=== PATIENT | male | born 1960 | race African-American/Black ===

== ENCOUNTER 2016-10-24 13:15 | Inpatient (IN) | payer OTHER ==
[~2016-10-24] VITALS: Ht 180.3 cm; Wt 87.1 kg
[2016-10-28] MEDS ORDERED: RANI300C PO (09:59)
[2016-10-28] MEDS ORDERED: OMEP20TA PO (09:59)
[2016-10-28] MEDS ORDERED: LISI40TA PO (09:59)
[2016-10-28] MEDS ORDERED: MELO-1 PO (09:59)
[2016-10-28] MEDS ORDERED: IRONTAB3 PO (09:59)
[2016-10-28] MEDS ORDERED: ASPI81TA19 PO (09:59)
[2016-11-14] MEDS ORDERED: SODIUM CHLORID 0.9% 500 ML IV PRN (06:15)
[2016-11-14] MEDS ORDERED: CHLORHEXIDINE GLUCONATE 2 % 1 PACK (2 CLOTHS) TOPICAL PRN (06:15)
[2016-11-14] MEDS ORDERED: INSULIN HUMAN REGULAR 1,000 UNITS/10 ML VIAL SQ PRN (06:15)
[2016-11-14] MEDS ORDERED: POVIDONE IODINE 5% (ANTISEPSIS KIT) 4 APPLICATIONS EACH NARE PRN (06:15)
[2016-11-14] MEDS ORDERED: LACTATED RINGER'S 1000 ML IV PRN (06:15)
[2016-11-14] MEDS ORDERED: METOPROLOL TARTRATE 25 MG TAB PO PRN (06:15)
[2016-11-14] MEDS ORDERED: ceFAZolin 2 GM PREMIX 50 ML ONE (06:21)
[2016-11-14] MEDS ORDERED: SODIUM CHLOR 0.9% 250 ML INJ 250 ML ONE (06:22)
[2016-11-14] MEDS ORDERED: VANCOMYCIN HCL 1000 MG VIAL ONE (06:22)
[2016-11-14] MEDS ORDERED: DEXAMETHASONE SOD PHOS 20 MG/5 ML VIAL ONE (06:23)
[2016-11-14] MEDS ORDERED: ACET-822 PO (06:23)
[2016-11-14 06:26] VITALS: BP 141/93; PULSE 66; RESP 16; TEMP 98.1; O2SAT 100
[2016-11-14] MEDS ORDERED: BISACODYL 10 MG SUPP RECTAL PRN (06:45)
[2016-11-14] MEDS ORDERED: ONDANSETRON HCL 4 MG/2 ML VIAL IVP PRN (06:45)
[2016-11-14] MEDS ORDERED: Post-op Orders (for Pharmacy) MISC XX ONE (06:45)
[2016-11-14] MEDS ORDERED: ZOLPIDEM TARTRATE 5 MG TAB PO PRN (06:45)
[2016-11-14] MEDS ORDERED: HYDR-3288 PO (06:45)
[2016-11-14] MEDS ORDERED: ACETAMINOPHEN/HYDROcodone 325 MG/7.5 MG TAB PO PRN (06:45)
[2016-11-14] MEDS ORDERED: NALOXONE HCL 0.4 MG/ML AMP IV PRN (06:45)
[2016-11-14] MEDS ORDERED: diphenhydrAMINE HCL 50 MG/ML VIAL IV PRN (06:45)
[2016-11-14] MEDS ORDERED: SODIUM CHLORIDE 0.9% FLUSH 5 ML FLUSH IVF PRN (06:45)
[2016-11-14] MEDS ORDERED: ENOX40P SQ (06:46)
[2016-11-14] MEDS ORDERED: ASPI81CH37 CHEW (06:46)
[2016-11-14] MEDS ORDERED: GENTAMICIN SULFATE 80 MG/2 ML VIAL ONE (06:58)
[2016-11-14] MEDS ORDERED: ACETAMINOPHEN 1000 MG/100 ML VIAL IV ONE (07:13)
[2016-11-14] MEDS ORDERED: ROPIVACAINE PERI-ARTICULAR INJECTION. P-ARTICULR SCH ×5 (08:30)
[2016-11-14] MEDS ORDERED: TRANEXAMIC PERI-ARTICULAR 3,000 MG/NS 100 ML P-ARTICULR SCH ×2 (08:30)
[2016-11-14] MEDS ORDERED: DEXAMETHASONE SOD PHOS 20 MG/5 ML VIAL IV PUSH SCH (08:30)
[2016-11-14] MEDS ORDERED: TRANEXAMIC ACID IV SCH (08:30)
[2016-11-14] MEDS ORDERED: CHLORHEXIDINE GLUCONATE 4% SOLN 120 ML BTL TOPICAL SCH (08:30)
[2016-11-14] MEDS ORDERED: POVIDONE IODINE 7.5% SCRUB 118 ML BOTTLE TOPICAL SCH (08:30)
[2016-11-14] MEDS ORDERED: SODIUM CHLORIDE 0.9% IV SCH (08:30)
[2016-11-14] MEDS ORDERED: VANCOMYCIN 1000 MG/NS 250 ML (for <70 kg) IV SCH ×2 (08:30)
[2016-11-14] MEDS ORDERED: ceFAZolin 2 GM PREMIX 50 ML IV SCH (08:30)
[2016-11-14] MEDS: PANTOPRAZOLE SOD 20 MG DELAYED RELEASE TAB PO SCH (09:00)
[2016-11-14] MEDS: LISINOPRIL 20 MG TAB PO SCH (09:00)
[2016-11-14] MEDS ORDERED: ROPIVACAINE 0.5% PF INJ 30 ML VIAL NERV BLOCK ONE (10:19)
[2016-11-14] MEDS ORDERED: DO NOT ADM ANY ANTICOAGULANT DRUGS PRN (10:23)
[2016-11-14] MEDS ORDERED: MIDAZOLAM HCL 2 MG/2 ML VIAL ONE (10:41)
[2016-11-14] MEDS ORDERED: fentaNYL CITRATE 250 MCG/5 ML AMP ONE (10:41)
[2016-11-14] MEDS ORDERED: *morphine SULFATE 8 MG/ML PERIprocedure ONLY ONE ×2 (10:46→11:04)
[2016-11-14] MEDS: SODIUM CHLOR 0.9% 1000 ML INJ 1,000 ML IV SCH ×3 (11:02→19:32)
[2016-11-14] MEDS: SODIUM CHLORIDE 0.9% FLUSH 5 ML FLUSH IVF SCH ×2 (11:09→19:32)
[2016-11-14] MEDS: ACETAMINOPHEN/HYDROcodone 325 MG/7.5 MG TAB PO PRN (11:54)
[2016-11-14 12:00] VITALS: BP 152/104; PULSE 84; RESP 17; TEMP 95.4; O2SAT 99
[2016-11-14] MEDS ORDERED: ONDANSETRON HCL 4 MG/2 ML VIAL IV PUSH ONE (12:00)
[2016-11-14] MEDS ORDERED: ePHEDrine/NS 25 MG/5 ML SYR IV ONE (12:00)
[2016-11-14] MEDS ORDERED: NEOSTIGMINE 3 MG/3 ML SYR IV ONE (12:00)
[2016-11-14] MEDS ORDERED: LACTATED RINGER'S 1000 ML INJ 1,000 ML IV ONE (12:00)
[2016-11-14] MEDS ORDERED: PHENYLEPH/NS 1000 MCG/10 ML SYR IV ONE (12:00)
[2016-11-14] MEDS ORDERED: PROPOFOL 200 MG/20 ML AMP IV ONE (12:00)
--- NOTE | 2016-11-14 12:01 | RADRPT ---
EXAM DATE/TIME: 11/14/2016 11:05 [facility] COMPARISON: No previous studies available for comparison. INDICATIONS : Post op left total knee. MEDICAL HISTORY : None. SURGICAL HISTORY : Total knee replacement, left. ENCOUNTER: Initial ACUITY: 1 day PAIN SCORE: 10/10 LOCATION: Left hip FINDINGS: Total knee arthroplasty is in place. The femoral, tibial, and patellar components appear intact. Th ere are no signs of loosening or fracture. CONCLUSION: Intact total knee arthroplasty for lindaOlivier KayaOlivier Lanier MD on November 14, 2016 at 11:56 Board Certified Radiologist. This report was verified electronically.
--- NOTE | 2016-11-14 14:04 | PD.CONS ---
HPI Service [facility] Hospitalists Consult Requested By Dr. Zachary Garay Reason for Consult Medical Management Primary Care Physician Dr. Jw Brooke Diagnoses: History of Present Illness Mr. Gregg is a pleasant 56 y/o male with HTN, GERD and osteoarthritis. He was admitted to [facility] on 11/14/16 for left total knee arthroplasty with Dr. Garay. The [facility] Hospitalist team was consulted to help with medical management post- operatively. Pt is seen on the orthopedic floor, post-op, and is doing well. His BP is elevated with systolic in the 150's but he has not taken his Lisinopril yet today. Pain is fairly well controlled. Duncan catheter is in place. No reported N/V, chest pain, SOB, palpitations. Pt is planned for home with [facility] at the time of discharge. Review of Systems Constitutional: DENIES: Fever, Chills Eyes: DENIES: Vision loss Ears, nose, mouth, throat: DENIES: Hearing loss Respiratory: DENIES: Cough, Shortness of breath Cardiovascular: DENIES: Chest pain, Palpitations, Dyspnea on Exertion, Lower Extremity Edema Gastrointestinal: DENIES: Abdominal pain, Nausea, Vomiting Genitourinary: DENIES: Dysuria Musculoskeletal: COMPLAINS OF: Joint pain, DENIES: Neck pain Integumentary: DENIES: Rash Neurologic: DENIES: Headache Psychiatric: DENIES: Confusion Past Family Social History Past Medical History HTN GERD Hyperlipidemia Osteoarthritis Chronic pain in both shoulders Past Surgical History None prior to admission Reported Medications -Tylenol Extra Strength 500 Mg PO DAILY -Lisinopril 40 Mg PO DAILY -Geritol Complete 1 Tab PO DAILY PRN -Aspir-Low 81 Mg PO DAILY -Omeprazole 20 Mg PO DAILY -Meloxicam 15 Mg PO DAILY Allergies: Coded Allergies: No Known Allergies (Unverified , 11/14/16) Family History Mother from breast cancer at age 37 Father from esophageal/stomach cancer Social History Hx of tobacco use Denies any alcohol use Hx of illicit drug use, marijuana and cocaine reported, none since 2009 Physical Exam Vital Signs Vital Signs Date Time Temp Pulse Resp B/P Pulse Ox O2 Delivery O2 Flow Rate FiO2 11/14/16 12:00 95.4 84 17 152/104 99 11/14/16 11:28 98.2 89 15 136/95 100 Nasal Cannula 2 11/14/16 11:15 73 14 154/93 100 Nasal Cannula 2 11/14/16 11:00 90 13 153/96 100 Nasal Cannula 2 11/14/16 10:45 96 15 149/91 100 Nasal Cannula 2 11/14/16 10:32 97.5 90 16 119/92 96 Simple Mask 4 11/14/16 06:26 98.1 66 16 141/93 100 Physical Exam GENERAL: This is a well-nourished, well-developed patient, in no apparent distress. HEENT: Atraumatic. Normocephalic. No temporal or scalp tenderness. No scleral icterus. Airway patent. NECK: Trachea midline, supple, nontender CARDIO: Regular RESP: CTA ABD: +BS, soft, non-tender, nondistended. EXT: LLE bandages are c/d/i NEURO: Awake and alert. Motor and sensory grossly within normal limits. Normal speech. Laboratory Laboratory Tests Test 11/14/16 06:10 Blood Type O POSITIVE Antibody Screen NEGATIVE Blood Bank Comment Imaging Last Impressions Knee X-Ray 11/14/16 0642 Signed Impressions: Service Date/Time: Monday, November 14, 2016 11:05 - CONCLUSION: Intact total knee arthroplasty for technique. Alis Lanier MD Assessment and Plan Problem List: (1) Primary localized osteoarthrosis, lower leg Status: Chronic Plan: - Pt s/p left total knee arthroplasty on 11/14/[address] Garay - [id number] control per Ortho - PT daily - IS - Constipation precautions - Duncan cath to be removed tomorrow - Pt is planning for discharge with HHC/PT at the end of this hospitalization - DVT prophylaxis (2) Hypertension Status: Chronic Plan: - Home meds resumed (3) GERD (gastroesophageal reflux disease) Status: Chronic Plan: - PPI (4) Hyperlipidemia Status: Chronic Assessment and Plan Patient examined. Assessment and plan formulated with Brisa Ibarra PA-C. I agree with the above. Problem Qualifiers (1) Primary localized osteoarthrosis, lower leg: Qualified Code: M17.12 - Primary localized osteoarthrosis, lower leg, left Brisa Ibarra Nov 14, 2016 14:04 Diomedes Viecnte MD Nov 14, 2016 16:37
[2016-11-14 15:43] VITALS: BP 133/72; PULSE 89; RESP 17; TEMP 95.6; O2SAT 97
[2016-11-14 16:32] VITALS: O2SAT 97
[2016-11-14 19:33] VITALS: BP 107/67; PULSE 74; RESP 18; TEMP 96.7; O2SAT 99
[2016-11-14 23:18] VITALS: BP 97/68; PULSE 75; RESP 18; TEMP 97.3; O2SAT 98
[2016-11-15] VITALS (7 sets, daily range): BP systolic 101–157; BP diastolic 61–98; PULSE 66–91; RESP 15–18; TEMP 96.7–98.6; O2SAT 97–99
[2016-11-15] MEDS: ACETAMINOPHEN/HYDROcodone 325 MG/7.5 MG TAB PO PRN ×5 (01:53→22:07)
[2016-11-15] MEDS: MAGNESIUM HYDROXIDE SUSP 30 ML CUP PO PRN ×2 (05:59→19:31)
[2016-11-15] MEDS: PANTOPRAZOLE SOD 20 MG DELAYED RELEASE TAB PO SCH (07:35)
[2016-11-15] MEDS: LISINOPRIL 20 MG TAB PO SCH (07:35)
[2016-11-15] MEDS: SODIUM CHLORIDE 0.9% FLUSH 5 ML FLUSH IVF SCH ×2 (07:36→19:32)
[2016-11-15 07:53] LABS: HEMATOCRIT 34.4 % (39.0-51.0); MEAN CELL VOLUME 91.3 FL (80.0-100.0); MEAN CORPUSCULAR HEMOGLOBIN 30.9 PG (27.0-34.0); MEAN CORPUSCULAR HGB CONC 33.9 % (32.0-36.0); PLATELET COUNT 268 TH/MM3 (150-450); RED BLOOD COUNT 3.77 MIL/MM3 (4.50-5.90); RED CELL DISTRIBUTION WIDTH 14.1 % (11.6-17.2); REVIEW FLAG FINAL
[2016-11-15 08:05] LABS: BICARBONATE 23.5 MEQ/L (21.0-32.0); POTASSIUM 3.6 MEQ/L (3.5-5.1)
--- NOTE | 2016-11-15 08:22 | PD.ORT.PN ---
Subjective Post Op Day #: 1 Subjective Remarks pain under control. Objective Vitals Vital Signs Date Time Temp Pulse Resp B/P Pulse Ox O2 Delivery O2 Flow Rate FiO2 11/15/16 07:51 97.6 72 15 124/74 99 11/15/16 04:29 97.8 70 18 101/62 97 11/14/16 23:18 97.3 75 18 97/68 98 11/14/16 19:33 96.7 74 18 107/67 99 11/14/16 16:32 97 21 11/14/16 15:43 95.6 89 17 133/72 97 11/14/16 12:00 95.4 84 17 152/104 99 11/14/16 11:28 98.2 89 15 136/95 100 Nasal Cannula 2 11/14/16 11:15 73 14 154/93 100 Nasal Cannula 2 11/14/16 11:00 90 13 153/96 100 Nasal Cannula 2 11/14/16 10:45 96 15 149/91 100 Nasal Cannula 2 11/14/16 10:32 97.5 90 16 119/92 96 Simple Mask 4 I/O 11/14/16 11/14/16 11/14/16 11/15/16 11/15/16 11/15/16 07:00 15:00 23:00 07:00 15:00 23:00 Intake Total 1100 ml 681 ml 1376 ml Output Total 50 ml 800 ml 975 ml Balance 1050 ml -119 ml 401 ml Intake Oral 480 ml 360 ml IV Total 201 ml 1016 ml Other 1100 ml Output Urine Total 800 ml 975 ml Estimated Blood Loss 50 ml # Bowel Movements 0 0 Result Diagram: 11/15/16 0711 11/15/16 0711 Objective Remarks in bed, nad incision no erythema, no drainage neg homans nvi Assessment & Plan Ortho Post Op Day #: 1 Problem List: Assessment and Plan s/p L TKA wbat daily dressing changes lovenox rx in chart d/c planning home with hh and pt - cleared today if does well in PT f/up dr. gallardo 2 weeks Zachary Wilson Nov 15, 2016 08:22
--- NOTE | 2016-11-15 08:24 | HHI.DCPOC ---
Discharge Care Plan Diagnosis: (1) Primary localized osteoarthrosis, lower leg Your Health Problems Are: Difficulty with ADL Goals to Promote Your Health * To prevent worsening of your condition and complications * To maintain your health at the optimal level Directions to Meet Your Goals Take your medications as prescribed Follow your dietary instruction Follow activity as directed Keep your appointments as scheduled Take your immunizations and boosters as scheduled If your symptoms worsen call your PCP, if no PCP go to Urgent Care Center or Emergency Room Smoking is Dangerous to Your Health. Avoid second hand smoke Call the 24-hour hour crisis hotline for domestic abuse at Zachary Wilson Nov 15, 2016 08:24
--- NOTE | 2016-11-15 08:25 | HHI.FF ---
Face to Face Verification Diagnosis: (1) Primary localized osteoarthrosis, lower leg Physical Therapy Gait training, Safety evaluation, Transfer training, bed to chair Knee: Total knee, Protocol: Left, Full weight bearing Left LE Weight Bearing: WB as tolerated Nursing RN: 3 days/week x 2 weeks Nursing: Marie teaching, Dressing changes Dressing Changes: Daily dressing change I have seen patient Jerod Gregg on 11/15/16. My clinical findings support the need for the requested home health care services because: Limited ability to care for self High risk of falls I certify that my clinical findings support that this patient is homebound because: Post-op weakness Unsteady gait/balance Zachary Wilson Nov 15, 2016 08:25
[2016-11-15] MEDS ORDERED: COMMODE 3-IN-11 MIS (08:26)
[2016-11-15] MEDS ORDERED: CPMMACHINE (08:26)
[2016-11-15] MEDS ORDERED: WALKER WHEELS/F1 MIS (08:26)
[2016-11-15] MEDS: ENOXAPARIN SODIUM 40 MG/0.4 ML SYRINGE SQ SCH (09:47)
[2016-11-15] MEDS ORDERED: INFLUENZA VIRUS VACCINE (QUADRIVALENT) 0.5 ML SYR IM ONE (10:00)
[2016-11-15] MEDS ORDERED: PNEUMOCOCCAL POLYVALENT INJ 25 MCG/0.5 ML SYR IM ONE (10:00)
[2016-11-15] MEDS: MORPHINE SULFATE 4 MG/ML INJ IV PUSH PRN ×3 (10:57→23:03)
[2016-11-15] MEDS: SODIUM CHLOR 0.9% 1000 ML INJ 1,000 ML IV SCH ×2 (12:42→19:32)
--- NOTE | 2016-11-15 18:01 | RADRPT ---
EXAM DATE/TIME: 11/15/2016 17:44 [facility] COMPARISON: CHEST SINGLE AP, November 21, 2011, 13:25. INDICATIONS : Cough, congestion. MEDICAL HISTORY : Osteoarthritis. SURGICAL HISTORY : None. ENCOUNTER: Initial ACUITY: 2 days PAIN SCORE: 0/10 LOCATION: Bilateral chest FINDINGS: A single view of the chest demonstrates the lungs to be symmetrically aerated without evidence of mas s, infiltrate or effusion. The cardiomediastinal contours are unremarkable. Osseous structures are intact. CONCLUSION: No acute disease. John Brady MD on November 15, 2016 at 17:59 Board Certified Radiologist. This report was verified electronically.
[2016-11-15] MEDS: guaiFENesin E.R. 600 MG TAB PO SCH ×2 (18:09→19:31)
[2016-11-15] MEDS: DOCUSATE SODIUM 100 MG CAP PO SCH (19:31)
[2016-11-15] MEDS: MULTIVITAMINS/MINERALS THERAPEUTIC TAB PO SCH (19:31)
[2016-11-16] MEDS: ACETAMINOPHEN/HYDROcodone 325 MG/7.5 MG TAB PO PRN ×4 (02:05→16:06)
[2016-11-16 04:09] VITALS: BP 138/89; PULSE 109; RESP 18; TEMP 98.1; O2SAT 97
[2016-11-16] MEDS: MORPHINE SULFATE 4 MG/ML INJ IV PUSH PRN (05:05)
--- NOTE | 2016-11-16 07:43 | PD.ORT.PN ---
Subjective Post Op Day #: 2 Subjective Remarks pain under control. feels better this morning. difficulty working with PT yesterday. Objective Vitals Vital Signs Date Time Temp Pulse Resp B/P Pulse Ox O2 Delivery O2 Flow Rate FiO2 11/16/16 07:29 Room Air 11/16/16 04:09 98.1 109 18 138/89 97 11/15/16 23:10 97.5 91 18 150/91 97 11/15/16 19:53 96.7 70 18 157/98 97 11/15/16 16:00 97.0 77 17 138/95 98 11/15/16 12:00 98.6 66 18 124/61 97 11/15/16 09:34 97 21 11/15/16 07:51 97.6 72 15 124/74 99 I/O 11/15/16 11/15/16 11/15/16 11/16/16 11/16/16 11/16/16 07:00 15:00 23:00 07:00 15:00 23:00 Intake Total 1376 ml 1171 ml 480 ml 360 ml Output Total 975 ml 2250 ml 400 ml Balance 401 ml -1079 ml 480 ml -40 ml Intake Oral 360 ml 600 ml 480 ml 360 ml IV Total 1016 ml 571 ml Output Urine Total 975 ml 2250 ml 400 ml # Voids 2 # Bowel Movements 0 0 0 0 Result Diagram: 11/15/16 0711 11/15/16 0711 Objective Remarks in bed, nad dressing c/d/i neg homans nvi Assessment & Plan Ortho Post Op Day #: 2 Problem List: Assessment and Plan s/p L TKA wbat daily dressing changes lovenox rx in chart OOB and IS d/c planning home with [facility] and pt - cleared today if does well in PT f/up dr. gallardo 2 weeks Zachary Wilson Nov 16, 2016 07:43
[2016-11-16 07:50] LABS: HEMATOCRIT 33.9 % (39.0-51.0); MEAN CELL VOLUME 90.6 FL (80.0-100.0); MEAN CORPUSCULAR HEMOGLOBIN 31.1 PG (27.0-34.0); MEAN CORPUSCULAR HGB CONC 34.3 % (32.0-36.0); PLATELET COUNT 283 TH/MM3 (150-450); RED BLOOD COUNT 3.74 MIL/MM3 (4.50-5.90); REVIEW FLAG FINAL; WHITE BLOOD COUNT 9.8 TH/MM3 (4.0-11.0)
[2016-11-16 08:00] VITALS: BP 134/87; PULSE 89; RESP 17; TEMP 96.4; O2SAT 94
[2016-11-16 08:14] LABS: BICARBONATE 28.1 MEQ/L (21.0-32.0)
[2016-11-16] MEDS: SODIUM CHLOR 0.9% 1000 ML INJ 1,000 ML IV SCH (08:42)
[2016-11-16] MEDS: LISINOPRIL 20 MG TAB PO SCH (08:59)
[2016-11-16] MEDS: PANTOPRAZOLE SOD 20 MG DELAYED RELEASE TAB PO SCH (08:59)
[2016-11-16] MEDS: ENOXAPARIN SODIUM 40 MG/0.4 ML SYRINGE SQ SCH (08:59)
[2016-11-16] MEDS: MULTIVITAMINS/MINERALS THERAPEUTIC TAB PO SCH (08:59)
[2016-11-16] MEDS: guaiFENesin E.R. 600 MG TAB PO SCH (08:59)
[2016-11-16] MEDS: DOCUSATE SODIUM 100 MG CAP PO SCH (08:59)
[2016-11-16] MEDS: SODIUM CHLORIDE 0.9% FLUSH 5 ML FLUSH IVF SCH (09:00)
[2016-11-16 12:00] VITALS: BP 162/98; PULSE 85; RESP 17; TEMP 96.5; O2SAT 97
[2016-11-16 16:00] VITALS: BP 152/95; PULSE 79; RESP 17; TEMP 96.9; O2SAT 99
--- NOTE | 2016-11-17 15:28 | MD ---
cc: KEVIN HILLMAN M.D. ADMISSION DATE: 11/14/2016 DISCHARGE DATE: 11/16/2016 ADMISSION DIAGNOSIS Severe degenerative osteoarthritis left knee. DISCHARGE DIAGNOSIS Severe degenerative osteoarthritis left knee. HISTORY OF PRESENT ILLNESS Mr. Gregg is a 56-year-old male who presented to the [facility] for evaluation by Dr. Kevin Hillman regarding his progressive knee pain on the left side. The patient states he had an injury to his left knee many years ago for which he never received treatment at that point in time. He notes over the past several years his knee pain has become progressive and severe inhibiting his ability to ambulate. The patient states he has no alleviating factors of his pain although in the past he has tried medications, bracing, other assistive devices, physical therapy, home exercises and injections without relief of his symptoms. He does have x-ray evidence of severe degenerative osteoarthritis of the left knee. While in the office the patient was counseled on his diagnosis and treatment options. The risks, benefits and indications were all discussed in great detail. The patient did elect to proceed with surgical intervention to include a left total knee arthroplasty. DATE OF SURGERY 11/14/2016. PROCEDURE Left total knee arthroplasty. POSTOP After surgery the patient was admitted to [facility] where he received appropriate medical management, pain control, DVT prophylaxis as well as physical therapy. DISCHARGE Once being discharged from the hospital the patient has been discharged to a fpc facility. He is in stable condition. He may weight-bear as tolerated. He is to receive daily dressing changes and has been instructed on appropriate wound care management. DISCHARGE MEDICATIONS The patient has been provided prescriptions for pain control as well as DVT prophylaxis medication. FOLLOWUP He has also been provided a follow-up appointment approximately 2 weeks from his date of surgery. The patient has asked appropriate questions which have been answered. The patient has been discharged. Dictated by: Mario Wilson PA-C Kevin Hillman MD JWM/SSB /8:04 AM /3:25 PM
--- NOTE | 2016-11-18 11:33 | MP ---
cc: KEVIN HILLMAN M.D. DATE OF SURGERY: 11/14/2016 PREOPERATIVE DIAGNOSIS Left knee osteoarthritis. POSTOPERATIVE DIAGNOSES Left knee osteoarthritis. PROCEDURE Left total knee arthroplasty. SURGEON Dr. Kevin Hillman ACCOUNT SERVICES SPECIALIST Kevin Wilson PA-C ANESTHESIA General with a femoral nerve block. ESTIMATED BLOOD LOSS 50 cc. COMPLICATIONS None. IMPLANTS USED [employer]. JUSTIFICATION This patient is a 56-year-old male who has severe degenerative osteoarthritis involving the left knee. He is severe disabling pain with standing, walking ambulation weightbearing activities and even severe pain at rest. The pain interferes with his activities of daily living. He has failed greater than three months of nonoperative conservative treatment to include medication, therapy, injections, ambulatory assisted aids, home exercise program, activity modification and weight loss. X-rays of the left knee revealed severe end-stage osteoarthritis, [id number] joint space narrowing, subchondral sclerosis, subchondral cysts, osteophyte formation and associated deformity. The patient was counseled as to the risks, benefits and alternatives to a total knee arthroplasty. The risks were discussed which include but are not limited to anesthesia, bleeding, infection, damage to nerves and blood vessels, pain, stiffness, failure of components, blood clots, pulmonary embolism and even . The patient's pain is severe. He favored the benefits over the risks and did wish to proceed with surgery. PROCEDURE IN DETAIL A written consent was obtained. The patient was identified by name, taken to the operating room and placed supine on the operating table. General anesthesia was administered as well as two grams of IV Ancef and one gram of IV vancomycin. A well-padded tourniquet was placed on the left thigh. The left lower extremity was prepped and draped using isopropyl alcohol, Hibiclens solution and ChloraPrep solution. After a timeout was performed an Esmarch bandage was used to exsanguinate the left lower extremity and the tourniquet was inflated to 250 mmHg. A longitudinal incision was made over the anterior aspect of the left knee. A medial parapatellar arthrotomy was performed. The patella was everted. A patellar resection guide was used to resect 9 mm of patella. Three drill holes were placed and the patellar trial fit well. Attention was turned to the femur where an intramedullary guide was placed. The distal femoral guide was set to remove 10 mm of distal femur 5 degrees off the anatomic valgus axis alignment. An oscillating saw was used to perform the distal femoral cut. Attention was turned to the tibia where an extramedullary tibial guide was set to remove 5 mm off the lowest portion of the medial tibial plateau. The tibial guide was pinned in place and the tibia cut was performed. A 5 mm spacer block showed full extension. Attention was turned back to the femur where the AP sizing block was placed and set to 3 degrees of external rotation. The AP block was pinned in place to allow resection of the anterior, posterior and chamfer cuts. A PCL box guide was then placed and the PCL was box cut with an oscillating saw. The medial and lateral meniscus remnants were removed as well as bone and soft tissue debris from the posterior portion of the knee. The tibia baseplate was then pinned in place. The tibia was drilled and punched. Trial components were evaluated and final components cemented in place. With the final components in place the leg could achieve full extension to 0 degrees and flexion to 140. There was no evidence of tibial lift-off. Varus-valgus balance appeared appropriate and symmetric. The patella was noted to track centrally. The tourniquet was deflated. Bovie cautery was used for hemostasis. The arthrotomy incision was closed with #1 Vicryl suture, the subcuticular layer with 2-0 Vicryl suture and skin closed with Dermabond. Sterile dressings were applied. The patient tolerated the procedure well. No intraoperative complications were noted. Kevin Wilson, physician visitor services assistant certified, was present during the entire procedure to include patient positioning and the procedure itself. The medical necessity of the physician visitor services assistant was indicated in this case due to the complexity of the procedure. He assisted with appropriate manipulation of the leg and also retraction of muscle, tendon, bone and neurovascular structures. He assisted in preparation of bone and also implantation of the prosthetic replacement. MD CRISTIAN Dhaliwal/JIE /10:49 AM /11:14 AM
== END 2016-11-16 17:48 | DRG 470 ==
LOC: HSDI 11-14 05:31 → N06B 11-14 11:39
PROVIDERS: ADMIT Orthopaedic Surgery Sports Medicine; ATTEND Orthopaedic Surgery Sports Medicine
PROC: 3E0T3CZ (ICD-10-PCS; 2016-11-14)
PROC: 0SRD0J9 Replacement of Left Knee Joint with Synthetic Substitute, Cemented, Open Approach (ICD-10-PCS; principal; 2016-11-14 08:00)
DX: M17.12 Unilateral primary osteoarthritis, left knee (principal); I10 Essential (primary) hypertension; K21.9 Gastro-esophageal reflux disease without esophagitis; E78.5 Hyperlipidemia, unspecified; G89.29 Other chronic pain; M25.512 Pain in left shoulder; M25.511 Pain in right shoulder; Z23 Encounter for immunization; Z87.891 Personal history of nicotine dependence
CPT/HCPCS: 71010; 73560; 80048; 85027; 86850; 86900; 86901; 90732; 94150; C1776; J0131; J0171; J0690; J0735; J1100; J1580; J1650; J1885; J2250; J2270; J2370; J2405; J2710; J2795; J3010; J3370; J7030; J7050; J7120; L1830

== ENCOUNTER → 2016-10-28 | Outpatient (CLI) | payer OTHER ==
[~2016-10-28] MED LIST: ASPI81TA19 PO; ASPI81TA21 PO; CYCL-36 PO; EXTR500C PO; GEMF600T PO; IBUP600T26 PO; IBUP800T23 PO; IRONTAB3; IRONTAB3 PO; LACT20SO4 PO; LISI40TA PO; MELO-1 PO; MUSCCRE9; OMEP20TA PO; OMPR20CCR PO; RANI300C PO; VIAG100T PO; ZYRT10TA12 PO; diclofenac topical TOP
--- NOTE | 2016-10-28 12:40 | RADRPT ---
EXAM DATE/TIME: 10/28/2016 10:02 [facility] COMPARISON: CHEST PA & LAT, December 01, 2011, 13:49. INDICATIONS : Evaluate for communicable disease, pneumonia. MEDICAL HISTORY : Osteoarthritis. SURGICAL HISTORY : None. ENCOUNTER: Initial ACUITY: 1 day PAIN SCORE: 0/10 LOCATION: Bilateral chest FINDINGS: Approximate 1.9 cm parenchymal density is present in the left upper lobe and at this site on the stud y from 2011 there was an approximate 5 cm masslike density therefore smaller. This may be scar. Heart and mediastinum are unremarkable for technique. CONCLUSION: Probable scar at the site of previously seen masslike consolidation left upper lobe, however repeat n oncontrast chest CT is suggested to compare to the study from 2014 and assess for stability. Alis Lanier MD on October 28, 2016 at 12:38 Board Certified Radiologist. This report was verified electronically.
--- NOTE | 2016-10-29 10:42 | EKG ---
Date Performed: 10/28/2016 Time Performed: 09:22:16 PTAGE: 56 years EKG: Sinus rhythm BORDERLINE LEFT AXIS DEVIATION MODERATE INTRAVENTRICULAR CONDUCTION DELAY MINIMAL VOLTAGE CRITERIA F OR LVH, CONSIDER NORMAL VARIANT BORDERLINE ECG NO PREVIOUS TRACING DOCTOR: Esequiel Miller Interpretating Date/Time 10/29/2016 10:40:53
== END ==
LOC: CPRE 08:56
PROVIDERS: ATTEND Orthopaedic Surgery Sports Medicine
DX: Z01.810 Encounter for preprocedural cardiovascular examination (principal); Z01.811 Encounter for preprocedural respiratory examination; Z01.818 Encounter for other preprocedural examination; M17.12 Unilateral primary osteoarthritis, left knee
CPT/HCPCS: 71020; 93005

== ENCOUNTER 2016-12-07 10:53 | Emergency (ER) | payer OTHER ==
[~2016-12-07] VITALS: Ht 180.3 cm; Wt 77.5 kg
[~2016-12-07 10:53] MED LIST changes: +ASPI81CH37 CHEW; -ASPI81TA19 PO; -ASPI81TA21 PO; +COMMODE 3-IN-11 MIS; +CPMMACHINE; -CYCL-36 PO; +ENOX40P SQ; -EXTR500C PO; -GEMF600T PO; +HYDR-3288 PO; -IBUP600T26 PO; -IBUP800T23 PO; -IRONTAB3; -LACT20SO4 PO; -MELO-1 PO; -MUSCCRE9; -OMPR20CCR PO; -RANI300C PO; -VIAG100T PO; +WALKER WHEELS/F1 MIS; -ZYRT10TA12 PO; -diclofenac topical TOP
[2016-12-07] MEDS ORDERED: IOHEXOL 350 MG/ML 10 ML VIAL (for RAD DIAG) IV PUSH ONE (10:54)
[2016-12-07 10:55] VITALS: BP 104/68; PULSE 118; RESP 20; TEMP 97.7; O2SAT 100
[2016-12-07] MEDS ORDERED: SODIUM CHLORIDE 0.9% FLUSH 10 ML FLUSH IVF PRN (12:30)
--- NOTE | 2016-12-07 12:34 | PD ---
HPI Chief Complaint: Pain: Acute or Chronic Time Seen by Provider: 12:16 Travel History International Travel<30 days: No Contact w/Intl Traveler<30days: No Traveled to known affect area: No History of Present Illness HPI 56-year-old male presents to the emergency department for evaluation of worsening left leg pain that has been ongoing since he came home from rehabilitation on Monday. He states he had left knee replacement surgery done by Dr. Garay on November 15, 2016. She went to rehabilitation and came home on Monday. He states that since then, he has not taken his pain medication due to constipation. However, he states the leg pain is actually in the ankle and calf as well. He also reports shortness of breath that started this morning. Patient reports history of hypertension. Denies any history of blood clots. No chest pain. No fevers or chills. No abdominal pain. No nausea, vomiting, diarrhea. PFSH Past Medical History Blood Disorders: No Cancer: No Cardiovascular Problems: Yes Chemotherapy: No Diabetes: No Diminished Hearing: No Endocrine: No Gastrointestinal Disorders: Yes (gerd) Genitourinary: No Hepatitis: No Hiatal Hernia: No Hypertension: Yes Immune Disorder: No Musculoskeletal: Yes (arthritis) Neurologic: No Psychiatric: No Reproductive: No Respiratory: No Radiation Therapy: No Thyroid Disease: No Past Surgical History AICD: No Arteriovenous Shunt: No Joint Replacement: No Pacemaker: No Other Surgery: No Social History Alcohol Use: Yes Tobacco Use: Yes (6-7 CIG PER DAY) Substance Use: No Allergies-Medications (Allergen,Severity, Reaction): Coded Allergies: No Known Allergies (Unverified , 12/07/16) Reported Meds & Prescriptions Reported Meds & Active Scripts Active Commode 3-in-1 (Device) 1 Mis Mis 1 Ea .ROUTE DIRECTED Walker with Front Wheels (Device) 1 Mis Mis 1 Ea .ROUTE DIRECTED CPM-Continuous Passive Motion Machine 1 Ea Device 1 Ea .ROUTE DIRECTED Aspirin Low Dose (Aspirin) 81 Mg Chew 81 Mg CHEW BID Lovenox Inj (Enoxaparin Sodium) 40 Mg/0.4 Ml Syr 40 Mg SQ DAILY [place] (Hydrocodone-Acetaminophen) 7.5-325 mg Tab 1-2 Tab PO Q6H PRN Reported Lisinopril 40 Mg Tab 40 Mg PO DAILY Geritol Complete (Iron-Vitamins) 1 Tab Tab 1 Tab PO DAILY PRN Omeprazole 20 Mg Tab 20 Mg PO DAILY Review of Systems Except as stated in HPI: all other systems reviewed are Neg Physical Exam Narrative GENERAL: Well-nourished, well-developed male patient, afebrile. SKIN: Focused skin assessment warm/dry. Patient has Steri-Strips noted to left anterior knee without erythema or drainage. HEAD: Normocephalic. Atraumatic. EYES: No scleral icterus. No injection or drainage. NECK: Supple, trachea midline. No JVD or lymphadenopathy. CARDIOVASCULAR: Regular rate and rhythm without murmurs, gallops, or rubs. Left pedal pulse 2+. RESPIRATORY: Breath sounds equal bilaterally. No accessory muscle use. Lungs sounds are clear to auscultation. GASTROINTESTINAL: Abdomen soft and nondistended. No tenderness to palpation. MUSCULOSKELETAL: No cyanosis, or edema. BACK: Nontender without obvious deformity. No CVA tenderness. Data Data Last Documented VS Vital Signs Date Time Temp Pulse Resp B/P (MAP) Pulse Ox O2 Delivery O2 Flow Rate FiO2 12/07/16 16:23 96 Room Air 12/07/16 10:55 97.7 118 20 Orders Orders Complete Blood Count With Diff (12/07/16 12:23) Basic Metabolic Panel (Bmp) (12/07/16 12:23) D-Dimer (12/07/16 12:23) Act Partial Throm Time (Ptt) (12/07/16 12:23) Prothrombin Time / Inr (Pt) (12/07/16 12:23) Magnesium (Mg) (12/07/16 12:23) Ckmb (Isoenzyme) Profile (12/07/16 12:23) Troponin I (12/07/16 12:23) Iv Access Insert/Monitor (12/07/16 12:23) Electrocardiogram (12/07/16 12:23) Ecg Monitoring (12/07/16 12:23) Oximetry (12/07/16 12:23) Oxygen Administration (12/07/16 12:23) Chest, Single Ap (12/07/16 12:23) Sodium Chloride 0.9% Flush (Ns Flush) (12/07/16 12:30) Us Leg Venous Doppler (12/07/16 ) Acetamin-Hydrocod 325-5 Mg ([place] 5-325 (12/07/16 12:45) Ct Pulmonary Angiogram (12/07/16 ) Vascular Access Team Consult/P PRN (12/07/16 16:42) Vascular Poc Ultrasound (12/07/16 ) Iohexol 350 Inj (Omnipaque 350 Inj) (12/07/16 10:54) Labs Laboratory Tests Test 12/07/16 13:00 White Blood Count 7.9 TH/MM3 Red Blood Count 4.37 MIL/MM3 Hemoglobin 12.9 GM/DL Hematocrit 39.2 % Mean Corpuscular Volume 89.9 FL Mean Corpuscular Hemoglobin 29.6 PG Mean Corpuscular Hemoglobin Concent 32.9 % Red Cell Distribution Width 13.7 % Platelet Count 423 TH/MM3 Mean Platelet Volume 7.9 FL Neutrophils (%) (Auto) 65.8 % Lymphocytes (%) (Auto) 24.3 % Monocytes (%) (Auto) 7.2 % Eosinophils (%) (Auto) 2.2 % Basophils (%) (Auto) 0.5 % Neutrophils # (Auto) 5.2 TH/MM3 Lymphocytes # (Auto) 1.9 TH/MM3 Monocytes # (Auto) 0.6 TH/MM3 Eosinophils # (Auto) 0.2 TH/MM3 Basophils # (Auto) 0.0 TH/MM3 CBC Comment DIFF FINAL Differential Comment Prothrombin Time 11.0 SEC Prothromb Time International Ratio 1.0 RATIO Activated Partial Thromboplast Time 31.5 SEC D-Dimer Quantitative (PE/DVT) 4.33 MG/L FEU Blood Urea Nitrogen 20 MG/DL Creatinine 1.24 MG/DL Random Glucose 92 MG/DL Calcium Level 10.6 MG/DL Magnesium Level 2.4 MG/DL Sodium Level 133 MEQ/L Potassium Level 5.0 MEQ/L Chloride Level 100 MEQ/L Carbon Dioxide Level 24.9 MEQ/L Anion Gap 8 MEQ/L Estimat Glomerular Filtration Rate 73 ML/MIN Total Creatine Kinase 67 U/L Troponin I LESS THAN 0.02 NG/ML MDM Medical Decision Making Medical Screen Exam Complete: Yes Emergency Medical Condition: Yes Medical Record Reviewed: Yes Interpretation(s) Venous Doppler ultrasound left lower extremity - CONCLUSION: 1. No sonographic evidence for left lower extremity DVT. chest x-ray - CONCLUSION: No acute disease. CT PA - CONCLUSION: 1. Probable scarring versus atelectasis left upper lobe. Three-month followup CT chest recommended. 2. No evidence for pulmonary embolism. 3. Small pericardial effusion. Differential Diagnosis Postop pain versus DVT versus PE versus anxiety Narrative Course 56-year-old male presents to the emergency department for left leg pain that started on Monday. He was just discharged from rehabilitation. He also states he has not taken his pain medication since coming home. He reports shortness of breath that started this morning. EKG, CBC, BMP, magnesium, CK, troponin, PTT, PTT/INR, d-dimer are ordered and pending. Chest x-ray and ultrasound of the left leg is ordered and pending. Patient is given Lortab 5/325 mg for pain. Patient declined Lortab for pain. EKG shows sinus rhythm, heart rate 95, no acute ST changes. CBC shows no acute abnormality. BMP shows no acute abnormality. CK is 67. Troponin is less than 0.02. Magnesium is 2.4. Coags show no acute abnormality. D-dimer is 4.33. Chest x-ray shows no acute disease. US left leg shows no evidence for DVT. CT pulmonary angiogram is ordered and pending. CT pulmonary angiogram shows 1. Probable scarring versus atelectasis left upper lobe. Three-month followup CT chest recommended; 2. No evidence for pulmonary embolism; 3. Small pericardial effusion. My attending physician, Dr. Cantrell, is aware of the findings and agrees with plan and disposition. The patient is given a copy of his CT report. He is instructed to follow his primary care physician for a 3 month follow-up CT of the chest. He is to return here for any acute worsening of symptoms. He verbalizes agreement and understanding. The patient was discharged in stable condition with instructions, including return instructions and follow up instructions. Diagnosis Primary Impression: Postoperative pain of left knee Referrals: Orthopedist Primary Care Physician Patient Instructions: General Instructions, Knee Pain (ED) Additional Instructions: Follow-up with your primary care physician. Please show CT report to your primary care physician. You need a 3 month follow-up CT of the chest. Follow-up with your orthopedist. Return to the emergency department for any acute worsening of symptoms. Med/Other Pt SpecificInfo: No Change to Meds Disposition: 01 DISCHARGE HOME Condition: Stable Danny,Anca SOLORIO Dec 07, 2016 12:34
[2016-12-07] MEDS ORDERED: ACETAMINOPHEN/HYDROcodone 325 MG/5 MG TAB PO ONE (12:45)
--- NOTE | 2016-12-07 13:01 | RADRPT ---
EXAM DATE/TIME: 12/07/2016 12:37 [facility] COMPARISON: No previous studies available for comparison. INDICATIONS : Left leg pain. Post left knee replacement. Shortness of breath. MEDICAL HISTORY : Gastroesophageal reflux disease. Hypertension. SURGICAL HISTORY : Total knee replacement, left. ENCOUNTER: Initial ACUITY: 4 - 6 days PAIN SCORE: 8/10 LOCATION: Left leg. TECHNIQUE: Venous ultrasound of the leg was performed from the inguinal ligament to the proximal calf. [place] e, color Doppler and spectral tracing, compression and augmentation techniques were used. FINDINGS: There is normal compressibility of the deep venous system from the inguinal region to the proximal ca lf. No echogenic clot is seen in the lumen of the common femoral, femoral, popliteal, and posterior tibial veins. There is a normal response of the venous system to proximal and distal augmentation an d respiration. CONCLUSION: 1. No sonographic evidence for left lower extremity DVT. Neto Cotter MD on December 07, 2016 at 12:59 Board Certified Radiologist. This report was verified electronically.
--- NOTE | 2016-12-07 13:05 | RADRPT ---
EXAM DATE/TIME: 12/07/2016 12:49 [facility] COMPARISON: CHEST SINGLE AP, November 15, 2016, 17:44. INDICATIONS : Short of breath since last Monday. MEDICAL HISTORY : Hypertension. SURGICAL HISTORY : None. ENCOUNTER: Initial ACUITY: 4 - 6 days PAIN SCORE: 0/10 LOCATION: Bilateral chest FINDINGS: A single view of the chest demonstrates the lungs to be symmetrically aerated without evidence of mas s, infiltrate or effusion. The cardiomediastinal contours are unremarkable. Osseous structures are intact. CONCLUSION: No acute disease. Sergio Mclain Jr., MD on December 07, 2016 at 13:03 Board Certified Radiologist. This report was verified electronically.
[2016-12-07 13:28] LABS: AUTOMATED NEUTROPHIL # 5.2 TH/MM3 (1.8-7.7); BASOPHIL % 0.5 % (0.0-2.0); EOSINOPHIL # 0.2 TH/MM3 (0-0.4); EOSINOPHIL % 2.2 % (0.0-4.0); HEMATOCRIT 39.2 % (39.0-51.0); HEMO FLAGS DIFF FINAL; LYMPH % 24.3 % (9.0-44.0); LYMPHOCYTE # 1.9 TH/MM3 (1.0-4.8); MEAN CELL VOLUME 89.9 FL (80.0-100.0); MEAN CORPUSCULAR HEMOGLOBIN 29.6 PG (27.0-34.0); MEAN CORPUSCULAR HGB CONC 32.9 % (32.0-36.0); MONO % 7.2 % (0.0-8.0); NEUT % 65.8 % (16.0-70.0); PLATELET COUNT 423 TH/MM3 (150-450); RED BLOOD COUNT 4.37 MIL/MM3 (4.50-5.90); RED CELL DISTRIBUTION WIDTH 13.7 % (11.6-17.2); WHITE BLOOD COUNT 7.9 TH/MM3 (4.0-11.0)
[2016-12-07 13:44] LABS: APTT (PATIENT) 31.5 SEC (24.3-30.1)
[2016-12-07 13:45] LABS: ANION GAP 8 MEQ/L (5-15); BICARBONATE 24.9 MEQ/L (21.0-32.0); BLOOD UREA NITROGEN 20 MG/DL (7-18); CHLORIDE 100 MEQ/L (98-107); GLOMERULAR FILTRATION RATE 73 ML/MIN (>89); MAGNESIUM 2.4 MG/DL (1.5-2.5); SODIUM (NA) 133 MEQ/L (136-145)
[2016-12-07 13:51] LABS: CREATINE KINASE 67 U/L (39-308)
[2016-12-07 15:00] VITALS: BP 112/70; PULSE 100; RESP 18; O2SAT 95
[2016-12-07 16:23] VITALS: O2SAT 96
--- NOTE | 2016-12-07 17:38 | RADRPT ---
EXAM DATE/TIME: 12/07/2016 17:21 [facility] COMPARISON: No previous studies available for comparison. INDICATIONS : Left knee pain with shortness of breath recent TKA. IV CONTRAST: 50 cc Omnipaque 350 (iohexol) IV RADIATION DOSE: 8.47 CTDIvol (mGy) MEDICAL HISTORY : Hypertension. Gastroesophageal reflux disease. SURGICAL HISTORY : Total knee replacement, left. ENCOUNTER: Initial ACUITY: 3 days PAIN SCALE: 7/10 LOCATION: Bilateral chest TECHNIQUE: Volumetric scanning of the chest was performed using a pulmonary embolism protocol MIP images were re constructed. Using automated exposure control and adjustment of the mA and/or kV according to patien t size, radiation dose was kept as low as reasonably achievable to obtain optimal diagnostic quality images. DICOM format image data is available electronically for review and comparison. Follow-up recommendations for detected pulmonary nodules are based at a minimum on nodule size and pa tient risk factors according to Fleischner Society Guidelines. FINDINGS: There are apical emphysematous changes noted in scattered emphysematous changes are seen with hyperin flation. There is elongated area of soft tissue in the left upper lobe having the appearance of scarr ing and atelectasis. A focal mass is not appreciated. There is no consolidation or adenopathy. A smal l pericardial effusion is noted anteriorly. There is no evidence for pulmonary embolism. CONCLUSION: 1. Probable scarring versus atelectasis left upper lobe. Three-month followup CT chest recommended. 2. No evidence for pulmonary embolism. 3. Small pericardial effusion. Jr Contreras MD on December 07, 2016 at 17:34 Board Certified Radiologist. This report was verified electronically.
[2016-12-07 18:42] VITALS: BP 110/62
--- NOTE | 2016-12-08 08:33 | EKG ---
Date Performed: 12/07/2016 Time Performed: 14:18:52 PTAGE: 56 years EKG: Sinus rhythm NORMAL ECG PREVIOUS TRACING : 10/28/2016 09.22 No significant change from previous tracing noted. DOCTOR: Jerod Vail Interpretating Date/Time 12/08/2016 08:31:43
== END 2016-12-07 18:44 | disposition home or self-care (01) ==
LOC: NEPE 10:53
DX: G89.18 Other acute postprocedural pain (principal); I31.3 Pericardial effusion (noninflammatory); Z98.890 Other specified postprocedural states; R06.02 Shortness of breath; I10 Essential (primary) hypertension; K59.00 Constipation, unspecified; Z72.0 Tobacco use; Z79.899 Other long term (current) drug therapy; Z86.79 Personal history of other diseases of the circulatory system; Z87.19 Personal history of other diseases of the digestive system; Z87.39 Personal history of other diseases of the musculoskeletal system and connective tissue
CPT/HCPCS: 71010; 71275; 76937; 80048; 82550; 83735; 84484; 85025; 85379; 85610; 85730; 93005; 93971; 99285; Q9967

== ENCOUNTER 2016-12-12 14:18 | Emergency (ER) | payer OTHER ==
[2016-12-12 14:22] VITALS: BP 122/88; PULSE 91; RESP 17; TEMP 98.2; O2SAT 98
--- NOTE | 2016-12-12 14:31 | PD ---
Physical Exam Date Seen by Provider: Dec 12, 2016 Time Seen by Provider: 14:30 Narrative Pt states he twisted his right knee getting off the couch. He reports a total knee replacement on 11/13/16. Injury occurred this morning. Pt states pain is a 10/10. Awaiting bed placement. Data Data Last Documented VS Vital Signs Date Time Temp Pulse Resp B/P (MAP) Pulse Ox O2 Delivery O2 Flow Rate FiO2 12/12/16 14:22 98.2 91 17 122/88 (99) 98 MDM Supervised Visit with JOSE: Brianda Duarte Dec 12, 2016 14:31
[2016-12-12] MEDS ORDERED: KETOROLAC TROMETHAMINE 60 MG/2 ML (IM) VIAL IM ONE (14:45)
--- NOTE | 2016-12-12 15:13 | PD ---
HPI Chief Complaint: Pain: Acute or Chronic Time Seen by Provider: 14:34 Travel History International Travel<30 days: No Contact w/Intl Traveler<30days: No Traveled to known affect area: No History of Present Illness HPI This patient has chronic left knee pain. He had surgical repair by Dr. Garay for weeks ago according to this patient. He has chronic effusion there. He uses a walker and doesn't wear his knee brace cousin irritates him. He was lying on the sofa last night and sort of twisted the left knee and aggravated it. No direct trauma or injury to it. He did not fall on it. He came in for evaluation. He says he has an appointment with Dr. Garay tomorrow morning at 9 :30. Severity is moderate. PFSH Past Medical History Blood Disorders: No Cancer: No Cardiovascular Problems: Yes Chemotherapy: No Diabetes: No Diminished Hearing: No Endocrine: No Gastrointestinal Disorders: Yes (gerd) Genitourinary: No Hepatitis: No Hiatal Hernia: No Hypertension: Yes Immune Disorder: No Musculoskeletal: Yes (arthritis) Neurologic: No Psychiatric: No Reproductive: No Respiratory: No Radiation Therapy: No Thyroid Disease: No Past Surgical History AICD: No Arteriovenous Shunt: No Joint Replacement: No Pacemaker: No Other Surgery: No Social History Alcohol Use: No Tobacco Use: No Substance Use: No Allergies-Medications (Allergen,Severity, Reaction): Coded Allergies: No Known Allergies (Unverified , 12/07/16) Reported Meds & Prescriptions Reported Meds & Active Scripts Active Commode 3-in-1 (Device) 1 Mis Mis 1 Ea .ROUTE DIRECTED Walker with Front Wheels (Device) 1 Mis Mis 1 Ea .ROUTE DIRECTED CPM-Continuous Passive Motion Machine 1 Ea Device 1 Ea .ROUTE DIRECTED Aspirin Low Dose (Aspirin) 81 Mg Chew 81 Mg CHEW BID Lovenox Inj (Enoxaparin Sodium) 40 Mg/0.4 Ml Syr 40 Mg SQ DAILY [place] (Hydrocodone-Acetaminophen) 7.5-325 mg Tab 1-2 Tab PO Q6H PRN Reported Lisinopril 40 Mg Tab 40 Mg PO DAILY Geritol Complete (Iron-Vitamins) 1 Tab Tab 1 Tab PO DAILY PRN Omeprazole 20 Mg Tab 20 Mg PO DAILY Review of Systems General / Constitutional: No: Fever HENT: No: Headaches Cardiovascular: No: Chest Pain or Discomfort Respiratory: No: Cough Physical Exam Narrative GASTROINTESTINAL: Abdomen soft, non-tender, nondistended. Positive bowel sounds. No hepato-splenomegaly, or palpable masses. No guarding. SKIN: Focused skin assessment reveals no rash or ulcers. Skin is warm and dry. Palpation shows no induration or nodules. Left knee: Surgical incision is intact without dehiscence or sign of infection. The distal half is covered with Steri-Strips. Patient has an effusion. No erythema or warmth. Data Data Last Documented VS Vital Signs Date Time Temp Pulse Resp B/P (MAP) Pulse Ox O2 Delivery O2 Flow Rate FiO2 12/12/16 14:22 98.2 91 17 122/88 (99) 98 Orders Orders Ketorolac Inj (Toradol Inj) (12/12/16 14:45) MDM Medical Decision Making Medical Screen Exam Complete: Yes Emergency Medical Condition: Yes Medical Record Reviewed: Yes Differential Diagnosis Chronic effusion, post surgical pain, soft tissue injury Narrative Course I have reviewed the patient's electronic medical record. Nothing emergent to do at this time. I recommended he ice and elevate and use the walker and wear the knee brace. He is seeing his orthopedist tomorrow morning. I don't think he needs to be emergently notified at this time given he is going to see this tomorrow morning. I gave him Toradol injection Diagnosis Primary Impression: Left knee pain Qualified Codes: M25.562 - Pain in left knee; G89.29 - Other chronic pain Additional Impression: Effusion, left knee Additional Instructions: Ice and elevate and limit weightbearing on left knee. Wear knee brace. Follow- up with orthopedist Med/Other Pt SpecificInfo: Other Disposition: 01 DISCHARGE HOME Condition: Stable Geraldo Mccormack MD Dec 12, 2016 15:13
[2016-12-12 15:34] VITALS: BP 142/81
== END 2016-12-12 15:45 | disposition home or self-care (01) ==
LOC: NEPD 14:18
DX: M25.562 Pain in left knee (principal); G89.29 Other chronic pain; M25.462 Effusion, left knee
CPT/HCPCS: 96372; 99284; J1885

== ENCOUNTER 2016-12-31 05:09 | Emergency (ER) | payer OTHER ==
[~2016-12-31] VITALS: Ht 181.6 cm; Wt 80.0 kg
[2016-12-31 05:11] VITALS: BP 158/98; PULSE 88; RESP 16; TEMP 97.9; O2SAT 98
[2016-12-31] MEDS ORDERED: MELO7.5T4 PO (05:30)
[2016-12-31] MEDS ORDERED: LINA145C PO (05:30)
[2016-12-31] MEDS ORDERED: PANT40TA3 PO (05:30)
[2016-12-31] MEDS ORDERED: LACTULOSE SYRUP 20 GM/30 ML CUP PO ONE (06:15)
[2016-12-31] MEDS ORDERED: MAGNESIUM CITRATE SOLN 300 ML BTL PO ONE (06:15)
[2016-12-31 06:18] LABS: AUTOMATED NEUTROPHIL # 3.6 TH/MM3 (1.8-7.7); BASOPHIL # 0.1 TH/MM3 (0-0.2); BASOPHIL % 0.9 % (0.0-2.0); EOSINOPHIL # 0.3 TH/MM3 (0-0.4); EOSINOPHIL % 5.2 % (0.0-4.0); HEMO FLAGS DIFF FINAL; LYMPH % 27.1 % (9.0-44.0); LYMPHOCYTE # 1.7 TH/MM3 (1.0-4.8); MEAN CELL VOLUME 88.6 FL (80.0-100.0); MEAN CORPUSCULAR HEMOGLOBIN 30.2 PG (27.0-34.0); MEAN CORPUSCULAR HGB CONC 34.1 % (32.0-36.0); MONO % 9.1 % (0.0-8.0); NEUT % 57.7 % (16.0-70.0); PLATELET COUNT 304 TH/MM3 (150-450); RED BLOOD COUNT 3.95 MIL/MM3 (4.50-5.90); RED CELL DISTRIBUTION WIDTH 14.6 % (11.6-17.2); WHITE BLOOD COUNT 6.2 TH/MM3 (4.0-11.0)
[2016-12-31 06:26] LABS: BACTERIA, URINE RARE /hpf; BLOOD, URINE NEG (NEG); COMMENT (UR) CULT NOT INDICATED; CULTURE IF INDICATED CULT NOT INDICATED; GLUCOSE,URINE NEG (NEG); HYALINE CAST, URINE 1 /lpf (RARE); KETONE, URINE NEG (NEG); MUCUS URINE FEW /lpf (OCC); NITRITE,URINE NEG (NEG); URINE COLOR LIGHT-YELLOW (YELLW/STRAW)
--- NOTE | 2016-12-31 06:35 | RADRPT ---
EXAM DATE/TIME: 12/31/2016 05:53 [facility] COMPARISON: No previous studies available for comparison. INDICATIONS : Abdomen pain since knee replacement surgery November 14, 2016. MEDICAL HISTORY : Hypertension. Gastroesophageal reflux disease SURGICAL HISTORY : Total knee replacement, left. ENCOUNTER: Initial ACUITY: 2 months PAIN SCORE: 10/10 LOCATION: Right lower quadrant abdomen FINDINGS: Supine and upright views of the abdomen were performed. The abdominal bowel gas pattern is normal. No air fluid levels are seen. No abnormal masses, calcifications, or organomegaly is seen. The visu alized lower lungs are clear. No evidence of free intraperitoneal gas. The osseous structures are u nremarkable. CONCLUSION: Radiographically benign abdomen without obstruction or pneumoperitoneum. Manuel Silva MD on December 31, 2016 at 6:32 Board Certified Radiologist. This report was verified electronically.
[2016-12-31 06:37] LABS: ALT (GPT) 21 U/L (12-78); ANION GAP 9 MEQ/L (5-15); AST (GOT) 16 U/L (15-37); BICARBONATE 22.1 MEQ/L (21.0-32.0); BLOOD UREA NITROGEN 13 MG/DL (7-18); CHLORIDE 107 MEQ/L (98-107); GLOMERULAR FILTRATION RATE 78 ML/MIN (>89); POTASSIUM 3.8 MEQ/L (3.5-5.1); SODIUM (NA) 138 MEQ/L (136-145)
[2016-12-31 06:40] LABS: ALKALINE PHOSPHATASE 97 U/L (45-117); TOTAL BILIRUBIN ADULT 0.2 MG/DL (0.2-1.0)
--- NOTE | 2016-12-31 06:53 | PD ---
HPI Chief Complaint: Complaint Time Seen by Provider: 05:21 Travel History International Travel<30 days: No Contact w/Intl Traveler<30days: No Traveled to known affect area: No History of Present Illness HPI Patient is a 56-year-old male who comes in complaining of difficulty having a bowel movement as well as difficulty urinating. He had a knee replacement in October and has been taking pain medicine since then. He has been having issues with constipation since then as well. He has tried different medications to help with the constipation, but it continues. He said he had a small bowel movement today, but has not had a normal bowel movement in a long time. He said he only urinated twice today. He denies any abdominal pain. He denies nausea or vomiting. He says he has a right-sided inguinal hernia that seems to be getting larger due to having to strain to have a bowel movement. PFSH Past Medical History Blood Disorders: No Cancer: No Cardiovascular Problems: Yes Chemotherapy: No Diabetes: No Diminished Hearing: No Endocrine: No Gastrointestinal Disorders: Yes (gerd) Genitourinary: No Hepatitis: No Hiatal Hernia: No Hypertension: Yes Immune Disorder: No Inguinal Hernia: Yes Musculoskeletal: Yes (arthritis) Neurologic: No Psychiatric: No Reproductive: No Respiratory: No Radiation Therapy: No Thyroid Disease: No ?: Not Past Surgical History AICD: No Arteriovenous Shunt: No Joint Replacement: Yes Pacemaker: No Other Surgery: Yes (LEFT KNEE REPLACEMENT ) Social History Alcohol Use: No Tobacco Use: No Substance Use: No Allergies-Medications (Allergen,Severity, Reaction): Coded Allergies: No Known Allergies (Unverified , 12/31/16) Reported Meds & Prescriptions Reported Meds & Active Scripts Active Aspirin Low Dose (Aspirin) 81 Mg Chew 81 Mg CHEW BID [place] (Hydrocodone-Acetaminophen) 7.5-325 mg Tab 1-2 Tab PO Q6H PRN Reported Meloxicam 7.5 Mg Tab 7.5 Mg PO DAILY Pantoprazole (Pantoprazole Sodium) 40 Mg Tab 40 Mg PO DAILY Linzess (Linaclotide) 145 Mcg Cap 145 Mcg PO DAILY Lisinopril 40 Mg Tab 40 Mg PO DAILY Geritol Complete (Iron-Vitamins) 1 Tab Tab 1 Tab PO DAILY PRN Review of Systems Except as stated in HPI: all other systems reviewed are Neg General / Constitutional: No: Fever, Chills HENT: No: Headaches, Lightheadedness Cardiovascular: No: Chest Pain or Discomfort Respiratory: No: Shortness of Breath Gastrointestinal: Positive: Constipation, No: Nausea, Vomiting, Abdominal Pain Genitourinary: Positive: Decreased Urinary Output Musculoskeletal: Positive: Pain Skin: No Rash, No Change in Pigmentation Neurologic: No: Weakness, Dizziness Physical Exam Narrative GENERAL: Awake and alert, in no acute distress. SKIN: Focused skin assessment warm/dry. HEAD: Atraumatic. Normocephalic. EYES: Pupils equal and round. No scleral icterus. No injection or drainage. ENT: Mucous membranes pink and moist. NECK: Trachea midline. No JVD. CARDIOVASCULAR: Regular rate and rhythm. No murmur appreciated. RESPIRATORY: No accessory muscle use. Clear to auscultation. Breath sounds equal bilaterally. GASTROINTESTINAL: Abdomen soft, non-tender, nondistended. Hepatic and splenic margins not palpable. MUSCULOSKELETAL: No obvious deformities. No clubbing. No cyanosis. Edema of the left knee, surgical scar. No erythema or warmth. NEUROLOGICAL: Awake and alert. No obvious cranial nerve deficits. Motor grossly within normal limits. Normal speech. PSYCHIATRIC: Appropriate mood and affect; insight and judgment normal. Data Data Last Documented VS Vital Signs Date Time Temp Pulse Resp B/P (MAP) Pulse Ox O2 Delivery O2 Flow Rate FiO2 12/31/16 05:11 97.9 88 16 158/98 (118) 98 Room Air Orders Orders Iv Access Insert/Monitor (12/31/16 05:35) Complete Blood Count With Diff (12/31/16 05:35) Comprehensive Metabolic Panel (12/31/16 05:35) Urinalysis - C+S If Indicated (12/31/16 05:35) Abdomen, Flat & Upright (12/31/16 ) Urinary Catheter Insert/Apply (12/31/16 05:35) Magnesium Citrate Liq (Citroma Liq) (12/31/16 06:15) Lactulose Liq (Lactulose Liq) (12/31/16 06:15) Labs Laboratory Tests Test 12/31/16 06:05 12/31/16 06:10 Urine Color LIGHT-YELLOW Urine Turbidity CLEAR Urine pH 6.0 Urine Specific [place] 1.004 Urine Protein NEG mg/dL Urine Glucose (UA) NEG mg/dL Urine Ketones NEG mg/dL Urine Occult Blood NEG Urine Nitrite NEG Urine Bilirubin NEG Urine Urobilinogen LESS THAN 2.0 MG/DL Urine Leukocyte Esterase NEG Urine RBC LESS THAN 1 /hpf Urine WBC 1 /hpf Urine Bacteria RARE /hpf Urine Hyaline Casts 1 /lpf Urine Mucus FEW /lpf Microscopic Urinalysis Comment CULT NOT INDICATED White Blood Count 6.2 TH/MM3 Red Blood Count 3.95 MIL/MM3 Hemoglobin 11.9 GM/DL Hematocrit 35.0 % Mean Corpuscular Volume 88.6 FL Mean Corpuscular Hemoglobin 30.2 PG Mean Corpuscular Hemoglobin Concent 34.1 % Red Cell Distribution Width 14.6 % Platelet Count 304 TH/MM3 Mean Platelet Volume 8.1 FL Neutrophils (%) (Auto) 57.7 % Lymphocytes (%) (Auto) 27.1 % Monocytes (%) (Auto) 9.1 % Eosinophils (%) (Auto) 5.2 % Basophils (%) (Auto) 0.9 % Neutrophils # (Auto) 3.6 TH/MM3 Lymphocytes # (Auto) 1.7 TH/MM3 Monocytes # (Auto) 0.6 TH/MM3 Eosinophils # (Auto) 0.3 TH/MM3 Basophils # (Auto) 0.1 TH/MM3 CBC Comment DIFF FINAL Differential Comment Blood Urea Nitrogen 13 MG/DL Creatinine 1.16 MG/DL Random Glucose 99 MG/DL Total Protein 7.3 GM/DL Albumin 3.8 GM/DL Calcium Level 9.4 MG/DL Alkaline Phosphatase 97 U/L Aspartate Amino Transf (AST/SGOT) 16 U/L Alanine Aminotransferase (ALT/SGPT) 21 U/L Total Bilirubin 0.2 MG/DL Sodium Level 138 MEQ/L Potassium Level 3.8 MEQ/L Chloride Level 107 MEQ/L Carbon Dioxide Level 22.1 MEQ/L Anion Gap 9 MEQ/L Estimat Glomerular Filtration Rate 78 ML/MIN [facility] Medical Decision Making Medical Screen Exam Complete: Yes Emergency Medical Condition: Yes Medical Record Reviewed: Yes Differential Diagnosis Constipation versus urinary retention versus urinary obstruction Narrative Course Patient is a 56-year-old male comes in complaining of constipation and difficulty urinating. Exam shows no acute abnormalities. IV established, labs sent. Labs show no acute abnormalities. Duncan was placed with 600 cc urine out. He was given a laxative and had a small bowel movement. Patient requesting Duncan be removed, even though I told him he would continue to have difficulty urinating. Duncan removed, patient discharged home. Asked for prescription for Lactulose. Given prescription for Flomax. Advised to avoid opiate pain relievers. Advised follow-up with his doctors and urology. Advised to return to the ED as needed for any worsening symptoms. Diagnosis Primary Impression: Constipation Qualified Codes: K59.03 - Drug induced constipation Referrals: Alcides Hill DO call for appointment Patient Instructions: Constipation (ED), General Instructions Additional Instructions: Avoid opiate pain relievers. Take Miralax and laxative as needed. Follow up with your doctors. Return to the ED as needed for any worsening symptoms. Scripts Tamsulosin (Flomax) 0.4 Mg Cap 0.4 MG PO HS for Manage Prostate Problems, #7 CAP 0 Refills Prov: Glo Denton MD 12/31/16 Lactulose Liq (Lactulose Liq) 10 Gm/15 Ml Soln 30 ML PO Q8HR Y for CONSTIPATION for 3 Days, ML 0 Refills Prov: Glo Denton MD 12/31/16 Disposition: 01 DISCHARGE HOME Condition: Stable Glo Denton MD Dec 31, 2016 06:53
[2016-12-31] MEDS ORDERED: LACT10SO PO (07:10)
[2016-12-31] MEDS ORDERED: TAMS5CAP PO (07:10)
== END 2016-12-31 07:45 | disposition home or self-care (01) ==
LOC: NEPC 05:09
DX: K59.00 Constipation, unspecified (principal); K21.9 Gastro-esophageal reflux disease without esophagitis; I10 Essential (primary) hypertension; M19.90 Unspecified osteoarthritis, unspecified site; Z79.82 Long term (current) use of aspirin; Z79.899 Other long term (current) drug therapy
CPT/HCPCS: 51702; 74020; 80053; 81001; 85025

== ENCOUNTER 2017-12-24 19:53 | Inpatient (IN) ==
--- NOTE | 2017-12-24 21:07 | ED ---
HPI General Chief Complaint: Chest Pain Stated Complaint: chest pain Time Seen by Provider: 12/24/17 20:41 Source: patient and RN notes reviewed Mode of arrival: ambulatory Limitations: no limitations History of Present Illness HPI narrative: 57-year-old male presents to the emergency department for evaluation of an area of right-sided chest pain that is "burning". He states this started yesterday. He took an aspirin which helped relieve his pain. He currently states it is 4/10. He also states that he will occasionally get some midsternal chest pain only with movement. He reports feeling like he is getting a cold with a nonproductive cough. Patient denies any fevers or chills. No leg edema. No history DVT or PE. No chemotherapy. No hemoptysis. No recent surgery or travel. Patient reports history of hypertension. He does state that he was treated several years ago for cryptococcus pneumonia. I did review these records. He states this pain is not similar. Moderate severity. MD complaint: chest pain Complete Quality Measures for STEMI Alert Patients Duration: constant Onset: during rest Pain location: right chest Severity: moderate Severity scale (1-10): 4 Quality: other (burning) Pain radiation: none Relieving factors: other (ASA) Exacerbating factors: nothing Associated symptoms: cough Treatments prior to arrival chest pain: aspirin (81 mg) Related Data Home Medications Medication Instructions Recorded Confirmed lisinopril 10 mg PO DAILY 12/24/17 12/24/17 Allergies Allergy/AdvReac Type Severity Reaction Status Date / Time No Known Allergies Allergy Unverified 12/24/17 20:19 Review of Systems ROS: all other systems reviewed are negative PMFSH Medical History Medical History Hypertension (Acute) Social History Social History Substance History: No History of Abuse Smoking Status: Former smoker How Often Do You Have a Drink Containing Alcohol: 2 to 4 times a month Recent Travel in [facility] within the Last 8 Weeks: No Recent Out of Country Travel within the Last 8 Weeks: No Exam Narrative Exam Narrative: GENERAL: Well-nourished, well-developed male patient, afebrile SKIN: Focused skin assessment warm/dry. HEAD: Normocephalic. Atraumatic EYES: No scleral icterus. No injection or drainage. NECK: Supple, trachea midline. No JVD or lymphadenopathy. CARDIOVASCULAR: Regular rate and rhythm without murmurs, gallops, or rubs. Bilateral radial and pedal pulses are 2+ RESPIRATORY: Breath sounds equal bilaterally. No accessory muscle use. Lung sounds are clear to auscultation GASTROINTESTINAL: Abdomen soft, non-tender, nondistended. MUSCULOSKELETAL: No cyanosis, or edema. BACK: Nontender without obvious deformity. No CVA tenderness. Procedures Chest Tube Chest Tube 1: Chest Tube Location: Mid-Axillary Chest Size of Tube (cm): 10 (5 barbadian, pigtail catheter) Chest Tube Procedure: Yes betadine prep Tube Sutured to Skin: No Sterile Dressing Applied: Yes Anesthesia: 1% Lidocaine w/ Epi Volume anesthetic (mL): 10 Incision made with: #10 blade Patterson of Air [place]: Yes Tube Drainage: none Post Procedure CXR?: Yes Progress: Postprocedure chest x-ray confirms that the pneumothorax has resolved with pigtail catheter placement. Patient Tolerated Procedure: Yes Post Procedure: sterile dressing applied Course Initial Documented Vital Signs Temperature 98.2 F 12/24/17 20:16 Pulse Rate 70 12/24/17 20:16 Respiratory Rate 18 12/24/17 20:16 Blood Pressure 150/91 H 12/24/17 20:16 Pulse Oximetry 96 12/24/17 20:16 Last Documented Vital Signs Temperature 97.8 F 12/24/17 20:19 Pulse Rate 58 L 12/25/17 05:22 Respiratory Rate 18 12/25/17 05:22 Blood Pressure 110/70 12/25/17 05:22 Pulse Oximetry 96 12/25/17 05:22 Medical Decision Making JOSE Attestation JOSE supervised visit: Yes Attestation: I, Dr. Prasad, have reviewed the advance practice practitioner's documentation and am in agreement, met with the patient face to face, made the diagnosis, and the medical decision making was done by me. The patient was initially evaluated by Anca, the CUSTOMS CONSULTANT. Please see their complete history and physical. *My assessment and Findings: The patient presents with burning right-sided chest pain that he reports began yesterday. During the course of the patient's emergency department visit, the patient's history, examination, and differential diagnosis were reviewed with the patient. The patient was placed on a director of cardiac cath lab with oximetry and frequent blood pressure monitoring. The patient had IV access obtained and blood work sent for analysis. The patient was initially provided morphine for pain. The patient's laboratory studies were reviewed and remarkable for a creatinine of 1.57, troponin I less than 0.02. Chest x-ray was called to me by the reading radiologist as showing a moderate to large right pneumothorax. The patient was evaluated by me. The patient agreed to chest tube placement. A timeout was done. The patient had a pigtail chest tube placed in the right side of his chest without complication. The patient's results were discussed with the patient, including the plan of care. I explained that further testing and/ or monitoring is indicated based on the patient's history, examination, and/ or laboratory findings. Therefore, I recommended admission for additional evaluation. The patient expressed understanding and was agreeable with this plan. The patient was admitted to the hospital in stable condition and sent to a bed under the care of [facility] hospitalist service. [facility] Narrative Medical decision making narrative: 57-year-old male presents to emergency department for evaluation of right-sided chest "burning". EKG shows sinus rhythm, no acute ST changes. CBC, CMP, CK, troponin, magnesium, PTT, PT/INR, d- dimer, chest x-ray ordered and pending. Patient is given second 81 mg aspirin. CBC shows no acute abnormality. CMP shows BUN 25, creatinine of 1.57. CK is 373. Troponin is less than 0.02. Magnesium si 2.0 PTT is 28.6. PT/INR is 10.3/1.0. D-dimer is 2.02. Chest x-ray shows a moderate size right pneumothorax. CTA pulmonary is not done due to pneumothorax, explaining patient 's right sided chest pain. My attending physician, Dr. Prasad, placed chest tube. Dr. Ricks was called and he states that he will consult on patient and manage chest tube. Dr. Cruz accepted admission. Medical Screen Exam Complete: Yes Emergency Medical Condition: Yes Differential Diagnosis Differential Diagnosis: Chest wall pain versus anxiety versus pneumonia versus pneumothroax versus PE versus ACS Medical Records Medical records reviewed: Yes I reviewed the patient's medical records. Lab Data Result diagrams: 12/24/17 21:25 12/24/17 21:25 Lab Results 12/24/17 12/24/17 12/24/17 Range/Units 21:25 21:25 21:25 WBC 5.7 (4.0-11.0) th/mm3 RBC 4.56 (4.50-5.90) mil/mm3 Hgb 13.4 (13.0-17.0) gm/dL Hct 40.1 (39.0-51.0) % MCV 87.9 (80.0-100.0) fL MCH 29.3 (27.0-34.0) pg MCHC 33.4 (32.0-36.0) % RDW 16.7 (11.6-17.2) % Plt Count 226 (150-450) th/mm3 MPV 9.3 (7.0-11.0) fL Neut % (Auto) 51.0 (16.0-70.0) % Lymph % (Auto) 34.2 (9.0-44.0) % White % (Auto) 8.5 H (0.0-8.0) % Eos % (Auto) 5.3 H (0.0-4.0) % Baso % (Auto) 1.0 (0.0-2.0) % Neut # (Auto) 2.9 (1.8-7.7) th/mm3 Lymph # (Auto) 1.9 (1.0-4.8) th/mm3 White # (Auto) 0.5 (0.0-0.9) th/mm3 Eos # (Auto) 0.3 (0.0-0.4) th/mm3 Baso # (Auto) 0.1 (0.0-0.2) th/mm3 WBC Differential . Differential Comment Auto diff final PT 10.3 (9.8-11.6) sec INR 1.0 Ratio APTT 28.6 (24.3-30.1) sec D-Dimer Quant (PE/DVT) (0.00-0.50) mg/L FEU Sodium 140 (136-145) meq/L Potassium 4.3 (3.5-5.1) meq/L Chloride 111 H (98-107) meq/L Carbon Dioxide 22.5 (21.0-32.0) meq/L Anion Gap 7 (5-15) meq/L BUN 25 H (7-18) mg/dL Creatinine 1.57 H (0.60-1.30) mg/dL Estimated GFR 55 L (>89) mL/min Random Glucose 88 (74-106) mg/dL Calcium 8.7 (8.5-10.1) mg/dL Magnesium (1.5-2.5) mg/dL Total Bilirubin 0.3 (0.2-1.0) mg/dL AST 26 (15-37) U/L ALT 25 (12-78) U/L Alkaline Phosphatase 105 (45-117) U/L Total Creatine Kinase 373 H (39-308) U/L CK-MB (CK-2) 4.2 H (0.5-3.6) ng/mL CK-MB (CK-2) % 1.1 (0.0-4.0) % Troponin I Less than 0.02 L (0.02-0.05) ng/mL Total Protein 7.3 (6.4-8.2) g/dL Albumin 3.9 (3.4-5.0) g/dL 12/24/17 12/24/17 Range/Units 21:25 21:25 WBC (4.0-11.0) th/mm3 RBC (4.50-5.90) mil/mm3 Hgb (13.0-17.0) gm/dL Hct (39.0-51.0) % MCV (80.0-100.0) fL MCH (27.0-34.0) pg MCHC (32.0-36.0) % RDW (11.6-17.2) % Plt Count (150-450) th/mm3 MPV (7.0-11.0) fL Neut % (Auto) (16.0-70.0) % Lymph % (Auto) (9.0-44.0) % White % (Auto) (0.0-8.0) % Eos % (Auto) (0.0-4.0) % Baso % (Auto) (0.0-2.0) % Neut # (Auto) (1.8-7.7) th/mm3 Lymph # (Auto) (1.0-4.8) th/mm3 White # (Auto) (0.0-0.9) th/mm3 Eos # (Auto) (0.0-0.4) th/mm3 Baso # (Auto) (0.0-0.2) th/mm3 WBC Differential Differential Comment PT (9.8-11.6) sec INR Ratio APTT (24.3-30.1) sec D-Dimer Quant (PE/DVT) 2.02 H (0.00-0.50) mg/L FEU Sodium (136-145) meq/L Potassium (3.5-5.1) meq/L Chloride (98-107) meq/L Carbon Dioxide (21.0-32.0) meq/L Anion Gap (5-15) meq/L BUN (7-18) mg/dL Creatinine (0.60-1.30) mg/dL Estimated GFR (>89) mL/min Random Glucose (74-106) mg/dL Calcium (8.5-10.1) mg/dL Magnesium 2.0 (1.5-2.5) mg/dL Total Bilirubin (0.2-1.0) mg/dL AST (15-37) U/L ALT (12-78) U/L Alkaline Phosphatase (45-117) U/L Total Creatine Kinase (39-308) U/L CK-MB (CK-2) (0.5-3.6) ng/mL CK-MB (CK-2) % (0.0-4.0) % Troponin I (0.02-0.05) ng/mL Total Protein (6.4-8.2) g/dL Albumin (3.4-5.0) g/dL Imaging Data Radiologist's impression: Chest X-Ray 12/24/17 20:59 CONCLUSION: Moderate size right pneumothorax. These findings were called to Dr. Prasad in the emergency room at 2128 hours. Chest X-Ray 12/24/17 23:19 CONCLUSION: Placement of right chest tube with near complete resolution of right pneumothorax. Discharge Plan Discharge Disposition Patient Disposition: 30 Still Patient Discharge Details Diagnosis: Pneumothorax on right Physicians Team ED Provider: Arlette Prasad ED Midlevel Provider: Anca Delgado Primary Care Provider: UNKNOWN, Attending Provider: Van Mantilla Other Providers: Tommie David ED Status: Admitted Patient
--- NOTE | 2017-12-24 21:32 | XR ---
EXAM DATE: 12/24/2017 9:21 PM EDT AGE/SEX: 57 years / Male INDICATIONS: Right sided chest pain. CLINICAL DATA: This is the patient's initial encounter. Patient reports that signs and symptoms have been present for 2 days and indicates a pain score of 4/10. MEDICAL/SURGICAL HISTORY: Hypertension. None. COMPARISON: . FINDINGS: A single AP portable erect view of the chest was obtained and demonstrates a moderate to large right pneumothorax which extends from the lung apex along the lateral chest wall to the lung base. This samm sures up to approximately 3.9 cm at the level lung apex and approximately 2.9 cm at the lung base. Th ere is no mediastinal shift. There are no confluent infiltrates or effusions. The bony thorax is inta ct. CONCLUSION: Moderate size right pneumothorax. These findings were called to Dr. Prasad in the emergency room at 2128 hours. Electronically signed by: Addison Hickey MD 12/24/2017 9:30 PM EDT
[2017-12-24 21:54] LABS: Baso # (Auto) 0.1 th/mm3 (0.0-0.2); Eos # (Auto) 0.3 th/mm3 (0.0-0.4); Eos % (Auto) 5.3 % (0.0-4.0); Hematocrit 40.1 % (39.0-51.0); Hemoglobin 13.4 gm/dL (13.0-17.0); Lymph # (Auto) 1.9 th/mm3 (1.0-4.8); Lymph % (Auto) 34.2 % (9.0-44.0); Mean Corpuscular HGB Conc 33.4 % (32.0-36.0); Mean Corpuscular Hemoglobin 29.3 pg (27.0-34.0); Mean Corpuscular Volume 87.9 fL (80.0-100.0); Mean Platelet Volume 9.3 fL (7.0-11.0); Mono # (Auto) 0.5 th/mm3 (0.0-0.9); Mono % (Auto) 8.5 % (0.0-8.0); Neut # (Auto) 2.9 th/mm3 (1.8-7.7); Platelet Count 226 th/mm3 (150-450); Red Blood Count 4.56 mil/mm3 (4.50-5.90); Red Cell Distribution Width 16.7 % (11.6-17.2); White Blood Count 5.7 th/mm3 (4.0-11.0)
[2017-12-24 22:09] LABS: Activated Partial Thrombo Time 28.6 sec (24.3-30.1); Prothrombin Time 10.3 sec (9.8-11.6)
[2017-12-24 22:17] LABS: Alanine Aminotransferase 25 U/L (12-78)
[2017-12-24] MEDS ORDERED: Morphine Inj 4 MG/ML Vial IV.PUSH ONE (22:18)
[2017-12-24 22:21] LABS: Albumin 3.9 g/dL (3.4-5.0); Alkaline Phosphatase 105 U/L (45-117); Anion Gap 7 meq/L (5-15); Aspartate Aminotransferase 26 U/L (15-37); Blood Urea Nitrogen 25 mg/dL (7-18); Calcium 8.7 mg/dL (8.5-10.1); Carbon Dioxide 22.5 meq/L (21.0-32.0); Chloride 111 meq/L (98-107); Creatine Kinase 373 U/L (39-308); Glomerular Filtration Rate 55 mL/min (>89); Glucose,Random 88 mg/dL (74-106); Sodium 140 meq/L (136-145); Total Protein 7.3 g/dL (6.4-8.2)
[2017-12-24 22:22] LABS: Potassium 4.3 meq/L (3.5-5.1)
[2017-12-24 22:35] LABS: CKMB Percent 1.1 % (0.0-4.0); Creatine Kinase MB 4.2 ng/mL (0.5-3.6)
[2017-12-24] MEDS ORDERED: Lidocaine 1%/Epinephrine 1:100,000 Inj 50 ML Vial ONE (23:01)
--- NOTE | 2017-12-24 23:40 | XR ---
EXAM DATE: 12/24/2017 11:36 PM EDT AGE/SEX: 57 years / Male INDICATIONS: Right sided pigtail catheter placement, pneumothorax. CLINICAL DATA: This is the patient's subsequent encounter. Patient reports that signs and symptoms h ave been present for 1 day and indicates a pain score of 4/10. MEDICAL/SURGICAL HISTORY: Hypertension. None. COMPARISON: [facility] [place], CHEST 1V SINGLE AP, 12/24/2017. . FINDINGS: A small caliber right chest tube has been placed with near complete resolution of the previous right pneumothorax. Tiny right pneumothorax persists. Minimal basilar atelectasis. CONCLUSION: Placement of right chest tube with near complete resolution of right pneumothorax. Electronically signed by: oJhn Brady MD 12/24/2017 11:38 PM EDT
[2017-12-24] MEDS ORDERED: Bisacodyl 10 MG Supp RECTAL PRN (23:55)
--- NOTE | 2017-12-25 00:08 | P.HP ---
[facility] Chief Complaint: Right-sided shortness of breath 1 day History of Present Illness: HPI narrative: 57-year-old male presents to the emergency department for evaluation of an area of right-sided chest pain that is "burning". He states this started yesterday. He took an aspirin which helped relieve his pain. He currently states it is 4/10. He also states that he will occasionally get some midsternal chest pain only with movement. He reports feeling like he is getting a cold with a nonproductive cough. Patient denies any fevers or chills. No leg edema. No history DVT or PE. No chemotherapy. No hemoptysis. No recent surgery or travel. Patient reports history of hypertension. He does state that he was treated several years ago for cryptococcus pneumonia. I did review these records. He states this pain is not similar. Moderate severity. 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 In the emergency room chest tube was placed, and general surgery was notified and they will manage the chest tube will be admitted now to [facility] service. Patient will be started on IV morphine as needed for pain. - Diagnosis (1) Pneumothorax on right (2) Hypertension Inpatient Certification: I certify that the inpatient services were ordered in accordance with Medicare regulations governing the order. This includes certification that hospital inpatient services are reasonable and necessary and in the case of services not specified as inpatient-only under 42 CFR 419.22(n), that they are appropriately provided as inpatient services in accordance to with the 2-midnight benchmark under 43 CFR 412.3(e) Estimated Total Length of Stay (Days): 3 Plans for Post Hospital Care: Not yet determined Review of Systems All other systems reviewed negative except as stated in HPI PMFSH - History History Provided By: Patient, Family Member - Medical History Medical History: Medical History (Last Updated 12/24/17 @ 20:22 by Wendi Caro RN) Hypertension - Tobacco History Smoking Status: Former smoker - Alcohol History How Often Do You Have a Drink Containing Alcohol: 2 to 4 times a month - Substance Use History Substance History: No History of Abuse - Travel History Recent Travel in the [place] Within the Last 8 Weeks: No Recent Travel Out of the Country Within the Last 8 Weeks: No - Immunization History Tetanus Immunization: <5 Years Hx Influenza Vaccine This Season: No Medications and Allergies Active Medications: Active Medications Bisacodyl (Dulcolax Supp) 10 mg RECTAL DAILY PRN PRN Reason: SEVERE CONSITIPATION Lisinopril (Prinivil) 10 mg PO DAILY FLORINDA Morphine Sulfate (Morphine Inj) 4 mg IV.PUSH Q4H PRN PRN Reason: PAIN SCALE 6-10 OR SEVERE SOB Ondansetron HCl (Zofran Inj) 4 mg IV.PUSH Q6H PRN PRN Reason: NAUSEA OR VOMITING Senna/Docusate Sodium (Pau-Colace) 1 tab PO BID FLORINDA Sodium Chloride (Ns Flush) 2 ml IV.FLUSH BID FLORINDA Sodium Chloride (Ns Flush) 2 ml IV.FLUSH PRN PRN PRN Reason: FLUSH AFTER USING IV ACCESS Allergies Allergy/AdvReac Type Severity Reaction Status Date / Time No Known Allergies Allergy Unverified 12/24/17 20:19 Home Medications Medication Instructions Recorded Confirmed Type lisinopril 10 mg PO DAILY 12/24/17 12/24/17 History Exam Vital signs: Vital Signs 12/24/17 20:16 12/24/17 20:19 12/24/17 20:45 Temperature 98.2 F 97.8 F Pulse Rate 70 74 Respiratory Rate 18 19 Blood Pressure 150/91 H 151/103 H Pulse Oximetry 96 98 98 12/24/17 21:59 12/24/17 23:00 12/24/17 23:49 Temperature Pulse Rate 96 H 72 Respiratory Rate 18 18 Blood Pressure 163/87 H 124/75 Pulse Oximetry 98 98 98 Intake & Output 12/24/17 12/24/17 12/25/17 06:59 18:59 06:59 Weight 90.718 kg Narrative: GENERAL: SKIN: Warm and dry. HEAD: Normocephalic. EYES: No scleral icterus. No injection or drainage. NECK: Supple, trachea midline. No JVD or lymphadenopathy. CARDIOVASCULAR: Regular rate and rhythm without murmurs, gallops, or rubs. RESPIRATORY: Breath sounds decreased rt side with pain on inspiration GASTROINTESTINAL: Abdomen soft, non-tender, nondistended. MUSCULOSKELETAL: No cyanosis, or edema. BACK: Nontender without obvious deformity. No CVA tenderness. Results - Labs CBC & Chem 7: 12/24/17 21:25 12/24/17 21:25 Labs: Laboratory Results - last 24 hr 12/24/17 12/24/17 12/24/17 21:25 21:25 21:25 WBC 5.7 RBC 4.56 Hgb 13.4 Hct 40.1 MCV 87.9 MCH 29.3 MCHC 33.4 RDW 16.7 Plt Count 226 MPV 9.3 Neut % (Auto) 51.0 Lymph % (Auto) 34.2 [place] % (Auto) 8.5 H Eos % (Auto) 5.3 H Baso % (Auto) 1.0 Neut # (Auto) 2.9 Lymph # (Auto) 1.9 [place] # (Auto) 0.5 Eos # (Auto) 0.3 Baso # (Auto) 0.1 WBC Differential . Differential Comment Auto diff final PT 10.3 INR 1.0 APTT 28.6 D-Dimer Quant (PE/DVT) Sodium 140 Potassium 4.3 Chloride 111 H Carbon Dioxide 22.5 Anion Gap 7 BUN 25 H Creatinine 1.57 H Estimated GFR 55 L Random Glucose 88 Calcium 8.7 Magnesium Total Bilirubin 0.3 AST 26 ALT 25 Alkaline Phosphatase 105 Total Creatine Kinase 373 H CK-MB (CK-2) 4.2 H CK-MB (CK-2) % 1.1 Troponin I Less than 0.02 L Total Protein 7.3 Albumin 3.9 12/24/17 12/24/17 21:25 21:25 WBC RBC Hgb Hct MCV MCH MCHC RDW Plt Count MPV Neut % (Auto) Lymph % (Auto) [place] % (Auto) Eos % (Auto) Baso % (Auto) Neut # (Auto) Lymph # (Auto) [place] # (Auto) Eos # (Auto) Baso # (Auto) WBC Differential Differential Comment PT INR APTT D-Dimer Quant (PE/DVT) 2.02 H Sodium Potassium Chloride Carbon Dioxide Anion Gap BUN Creatinine Estimated GFR Random Glucose Calcium Magnesium 2.0 Total Bilirubin AST ALT Alkaline Phosphatase Total Creatine Kinase CK-MB (CK-2) CK-MB (CK-2) % Troponin I Total Protein Albumin - Imaging Impressions Chest X-Ray 12/24/17 20:59 CONCLUSION: Moderate size right pneumothorax. These findings were called to Dr. Prasad in the emergency room at 2128 hours. Chest X-Ray 12/24/17 23:19 CONCLUSION: Placement of right chest tube with near complete resolution of right pneumothorax. Caprini VTE Risk Assessment Caprini VTE Risk Assessment: No/Low Risk (score <= 1) Caprini Risk Assessment Model: Point Value = 1 Point Value = 2 Point Value = 3 Point Value = 5 Age 41-60 Minor surgery BMI > 25 kg/m2 Swollen legs Varicose veins or History of unexplained or recurrent spontaneous Oral contraceptives or hormone replacement Sepsis (< 1 month) Serious lung disease, including pneumonia (< 1 month) Abnormal pulmonary function Acute myocardial infarction Congestive heart failure (< 1 month) History of inflammatory bowel disease Medical patient at bed rest Age 61-74 Arthroscopic surgery Major open surgery (> 45 min) Laparoscopic surgery (> 45 min) Malignancy Confined to bed (> 72 hours) Immobilizing plaster cast Central venous access Age >= 75 History of VTE Family history of VTE Factor V Leiden Prothrombin [id number] Lupus anticoagulant Anticardiolipin antibodies Elevated serum homocysteine Heparin-induced thrombocytopenia Other congenital or acquired thrombophilia Stroke (< 1 month) Elective arthroplasty Hip, pelvis, or leg fracture Acute spinal cord injury (< 1 month) Prophylaxis Regimen: Total Risk Factor Score Risk Level Prophylaxis Regimen 0-1 Low Early ambulation 2 Moderate Order ONE of the following: *Sequential Compression Device (SCD) *Heparin 5000 units SQ BID 3-4 Higher Order ONE of the following medications: *Heparin 5000 units SQ TID *Enoxaparin/Lovenox 40 mg SQ daily (WT < 150 kg, CrCl > 30 mL/min) *Enoxaparin/Lovenox 30 mg SQ daily (WT < 150 kg, CrCl > 10-29 mL/min) *Enoxaparin/Lovenox 30 mg SQ BID (WT < 150 kg, CrCl > 30 mL/min) AND/OR *Sequential Compression Device (SCD) 5 or more Highest Order ONE of the following medications: *Heparin 5000 units SQ TID (Preferred with Epidurals) *Enoxaparin/Lovenox 40 mg SQ daily (WT < 150 kg, CrCl > 30 mL/min) *Enoxaparin/Lovenox 30 mg SQ daily (WT < 150 kg, CrCl > 10-29 mL/min) *Enoxaparin/Lovenox 30 mg SQ BID (WT < 150 kg, CrCl > 30 mL/min) AND *Sequential Compression Device (SCD) Assessment and Plan - Assessment (1) Pneumothorax on right Code(s): J93.9 - Pneumothorax, unspecified Status: Acute Plan: S/P chest tube insertion ,surgery to follow (2) Hypertension Code(s): I10 - Essential (primary) hypertension Status: Acute Plan: continue tavo inhibitor - Plan further plan as case develops Code Status: full Discussed Condition With: patient
[2017-12-25] MEDS: Morphine Inj 4 MG/ML Vial IV.PUSH PRN ×3 (01:40→11:06)
--- NOTE | 2017-12-25 08:50 | XR ---
EXAM DATE: 12/25/2017 8:39 AM EDT AGE/SEX: 57 years / Male INDICATIONS: Right side pneumothorax, from accident yesterday. CLINICAL DATA: This is the patient's subsequent encounter. Patient reports that signs and symptoms h ave been present for 2 days and indicates a pain score of 6/10. MEDICAL/SURGICAL HISTORY: None. . Right side chest tube placement. [place] [facility] [place]. . FINDINGS: Lungs are hypoaerated. Right-sided chest tube is in stable position. There is no evidence of pneumothorax. Mild basilar atelectasis is noted. Heart and mediastinal structures are stable. CONCLUSION: Stable chest without evidence of pneumothorax. Stable position of right chest tube. Scattered atelectasis. Electronically signed by: Prabhjot Monson MD 12/25/2017 8:49 AM EDT
--- NOTE | 2017-12-25 10:03 | CT ---
EXAM DATE: 12/25/2017 9:57 AM EDT AGE/SEX: 57 years / Male INDICATIONS: Trauma, construction accident. Status post chest tube placement. CLINICAL DATA: This is the patient's initial encounter. Patient reports that signs and symptoms have been present for 1 day and indicates a pain score of 7/10. MEDICAL/SURGICAL HISTORY: Hypertension. . back surgery RADIATION DOSE: 19.44 CTDI (mGy) ; Patient positioning COMPARISON: [facility], CHEST 1V SINGLE AP, 12/24/2017. . TECHNIQUE: Multiple contiguous axial images were obtained through the chest during bolus infusion of 70 ml Omnipaque 350 (iohexol) nonionic water-soluble contrast as a single exam dose. Images were obtained in suspended respiration using multiple row detector helical technique. Using automated exp osure control and adjustment of the mA and/or kV according to patient size, radiation dose was kept a s low as reasonably achievable to obtain optimal diagnostic quality images. DICOM format image data is available electronically for review and comparison. FINDINGS: Smallbore chest tube has been placed on the right with trace pneumothorax remaining anteriorly. Bibas ilar parenchymal changes are evident. Rib fracture is not appreciated. Mediastinum is unremarkable. Thoracic spine intact. CONCLUSION: 1. Trace pneumothorax remaining with small chest tube in good position 2. Minimal bibasilar parenchymal changes evident. Electronically signed by: Ajay Blevins MD 12/25/2017 10:01 AM EDT
--- NOTE | 2017-12-25 10:10 | P.PNVS ---
Subjective Subjective/Hospital Course: Patient with small traumatic pneumothorax on top of various medical problems Full consult to follow Thanks J Objective Vital Signs / I&O: Vital Signs 12/24/17 20:16 12/24/17 20:19 12/24/17 20:45 Temperature 98.2 F 97.8 F Pulse Rate 70 74 Respiratory Rate 18 19 Blood Pressure 150/91 H 151/103 H Pulse Oximetry 96 98 98 12/24/17 21:59 12/24/17 23:00 12/24/17 23:49 Temperature Pulse Rate 96 H 72 Respiratory Rate 18 18 Blood Pressure 163/87 H 124/75 Pulse Oximetry 98 98 98 12/25/17 00:19 12/25/17 01:43 12/25/17 01:44 Temperature Pulse Rate 66 74 Respiratory Rate 18 18 18 Blood Pressure 127/80 132/88 Pulse Oximetry 99 98 12/25/17 03:00 12/25/17 04:23 12/25/17 05:22 Temperature Pulse Rate 66 64 58 L Respiratory Rate 16 18 18 Blood Pressure 114/74 137/88 110/70 Pulse Oximetry 99 100 96 12/25/17 06:34 12/25/17 07:45 Temperature Pulse Rate 59 L Respiratory Rate 16 Blood Pressure 112/74 Pulse Oximetry 96 97 Intake & Output 12/24/17 12/25/17 12/25/17 18:59 06:59 18:59 Weight 90.718 kg Laboratory Results - last 24 hr 12/24/17 12/24/17 12/24/17 21:25 21:25 21:25 WBC 5.7 RBC 4.56 Hgb 13.4 Hct 40.1 MCV 87.9 MCH 29.3 MCHC 33.4 RDW 16.7 Plt Count 226 MPV 9.3 Neut % (Auto) 51.0 Lymph % (Auto) 34.2 [place] % (Auto) 8.5 H Eos % (Auto) 5.3 H Baso % (Auto) 1.0 Neut # (Auto) 2.9 Lymph # (Auto) 1.9 [place] # (Auto) 0.5 Eos # (Auto) 0.3 Baso # (Auto) 0.1 WBC Differential . Differential Comment Auto diff final PT 10.3 INR 1.0 APTT 28.6 D-Dimer Quant (PE/DVT) Sodium 140 Potassium 4.3 Chloride 111 H Carbon Dioxide 22.5 Anion Gap 7 BUN 25 H Creatinine 1.57 H Estimated GFR 55 L Random Glucose 88 Calcium 8.7 Magnesium Total Bilirubin 0.3 AST 26 ALT 25 Alkaline Phosphatase 105 Total Creatine Kinase 373 H CK-MB (CK-2) 4.2 H CK-MB (CK-2) % 1.1 Troponin I Less than 0.02 L Total Protein 7.3 Albumin 3.9 12/24/17 12/24/17 21:25 21:25 WBC RBC Hgb Hct MCV MCH MCHC RDW Plt Count MPV Neut % (Auto) Lymph % (Auto) [place] % (Auto) Eos % (Auto) Baso % (Auto) Neut # (Auto) Lymph # (Auto) [place] # (Auto) Eos # (Auto) Baso # (Auto) WBC Differential Differential Comment PT INR APTT D-Dimer Quant (PE/DVT) 2.02 H Sodium Potassium Chloride Carbon Dioxide Anion Gap BUN Creatinine Estimated GFR Random Glucose Calcium Magnesium 2.0 Total Bilirubin AST ALT Alkaline Phosphatase Total Creatine Kinase CK-MB (CK-2) CK-MB (CK-2) % Troponin I Total Protein Albumin Impressions Chest X-Ray 12/24/17 20:59 CONCLUSION: Moderate size right pneumothorax. These findings were called to Dr. Prasad in the emergency room at 2128 hours. Chest X-Ray 12/24/17 23:19 CONCLUSION: Placement of right chest tube with near complete resolution of right pneumothorax. Chest X-Ray 12/25/17 00:00 CONCLUSION: Stable chest without evidence of pneumothorax. Stable position of right chest tube. Scattered atelectasis. Chest CT 12/25/17 08:45 CONCLUSION: 1. Trace pneumothorax remaining with small chest tube in good position 2. Minimal bibasilar parenchymal changes evident.
--- NOTE | 2017-12-25 10:25 | P.PN ---
Subjective Interval history: TRAUMA PTD: 2. HD: 1 Sitting up in bed. No distress noted. at bedside. Patient complains of soreness and burning/stinging to right chest. Physical Exam Vital signs: Vital Signs 12/24/17 20:16 12/24/17 20:19 12/24/17 20:45 Temperature 98.2 F 97.8 F Pulse Rate 70 74 Respiratory Rate 18 19 Blood Pressure 150/91 H 151/103 H Pulse Oximetry 96 98 98 12/24/17 21:59 12/24/17 23:00 12/24/17 23:49 Temperature Pulse Rate 96 H 72 Respiratory Rate 18 18 Blood Pressure 163/87 H 124/75 Pulse Oximetry 98 98 98 12/25/17 00:19 12/25/17 01:43 12/25/17 01:44 Temperature Pulse Rate 66 74 Respiratory Rate 18 18 18 Blood Pressure 127/80 132/88 Pulse Oximetry 99 98 12/25/17 03:00 12/25/17 04:23 12/25/17 05:22 Temperature Pulse Rate 66 64 58 L Respiratory Rate 16 18 18 Blood Pressure 114/74 137/88 110/70 Pulse Oximetry 99 100 96 12/25/17 06:34 12/25/17 07:45 Temperature Pulse Rate 59 L Respiratory Rate 16 Blood Pressure 112/74 Pulse Oximetry 96 97 Intake & Output 12/24/17 12/25/17 12/25/17 18:59 06:59 18:59 Weight 90.718 kg Narrative: GENERAL: This is a 57-year-old male, sitting up in bed. No distress noted. SKIN: Warm and dry. HEAD: Atraumatic. Normocephalic. EYES: PERRLA ENT: No nasal bleeding or discharge. Mucous membranes pink and moist. NECK: Trachea midline. No JVD. CARDIOVASCULAR: Regular rate and rhythm. RESPIRATORY: No accessory muscle use. Lungs are clear to auscultation. Breath sounds equal bilaterally. No distress or dyspnea. Right apical pigtail catheter in place to Pleur-evac drainage system to 20 cm suction. Dressing CDI. No air leak noted. GASTROINTESTINAL: BS + x 4 quads. Abdomen soft, non-tender, nondistended. MUSCULOSKELETAL: Extremities without cyanosis, or edema. + peripheral pulses x 4 extremities. Warm with good capillary refill and sensation. MAEW. NEUROLOGICAL: Awake and alert. Normal speech and pattern. Results - Labs CBC & Chem 7: 12/26/17 06:36 12/26/17 06:36 Laboratory Results - last 24 hr 12/24/17 12/24/17 12/24/17 21:25 21:25 21:25 WBC 5.7 RBC 4.56 Hgb 13.4 Hct 40.1 MCV 87.9 MCH 29.3 MCHC 33.4 RDW 16.7 Plt Count 226 MPV 9.3 Neut % (Auto) 51.0 Lymph % (Auto) 34.2 [place] % (Auto) 8.5 H Eos % (Auto) 5.3 H Baso % (Auto) 1.0 Neut # (Auto) 2.9 Lymph # (Auto) 1.9 [place] # (Auto) 0.5 Eos # (Auto) 0.3 Baso # (Auto) 0.1 WBC Differential . Differential Comment Auto diff final PT 10.3 INR 1.0 APTT 28.6 D-Dimer Quant (PE/DVT) Sodium 140 Potassium 4.3 Chloride 111 H Carbon Dioxide 22.5 Anion Gap 7 BUN 25 H Creatinine 1.57 H Estimated GFR 55 L Random Glucose 88 Calcium 8.7 Magnesium Total Bilirubin 0.3 AST 26 ALT 25 Alkaline Phosphatase 105 Total Creatine Kinase 373 H CK-MB (CK-2) 4.2 H CK-MB (CK-2) % 1.1 Troponin I Less than 0.02 L Total Protein 7.3 Albumin 3.9 12/24/17 12/24/17 21:25 21:25 WBC RBC Hgb Hct MCV MCH MCHC RDW Plt Count MPV Neut % (Auto) Lymph % (Auto) [place] % (Auto) Eos % (Auto) Baso % (Auto) Neut # (Auto) Lymph # (Auto) [place] # (Auto) Eos # (Auto) Baso # (Auto) WBC Differential Differential Comment PT INR APTT D-Dimer Quant (PE/DVT) 2.02 H Sodium Potassium Chloride Carbon Dioxide Anion Gap BUN Creatinine Estimated GFR Random Glucose Calcium Magnesium 2.0 Total Bilirubin AST ALT Alkaline Phosphatase Total Creatine Kinase CK-MB (CK-2) CK-MB (CK-2) % Troponin I Total Protein Albumin - Imaging Impressions Chest X-Ray 12/24/17 20:59 CONCLUSION: Moderate size right pneumothorax. These findings were called to Dr. Prasad in the emergency room at 2128 hours. Chest X-Ray 12/24/17 23:19 CONCLUSION: Placement of right chest tube with near complete resolution of right pneumothorax. Chest X-Ray 12/25/17 00:00 CONCLUSION: Stable chest without evidence of pneumothorax. Stable position of right chest tube. Scattered atelectasis. Chest CT 12/25/17 08:45 CONCLUSION: 1. Trace pneumothorax remaining with small chest tube in good position 2. Minimal bibasilar parenchymal changes evident. Assessment and Plan - Plan [place]: This is a 57-year-old AA male who tells us that he got pinned up against the wall by a large machine at work. He originally had no issues, but the next day his right chest started to ache and developed burning in his chest. INJURIES: RIGHT PTX PMHx: HTN Procedures: 12/25: R CT placement Consults: Hospitalist. Case management. Diet: Regular diet. Tolerating po diet. Encourage good po intake with each meal. Pulmonary: Encourage good pulmonary toileting. IS at bedside and pt encouraged to use. Rationale for use explained to patient, and verbalized understanding. PAIN Management: [place] 5-7.5 mg q 5h. Morphine 4 mg q 4h for breakthrough pain. Valium 2 mg q 8h. Lidoderm patch Activity: OOB. PT ordered. GI prophylaxis: Protonix 40 mg p.o. Bowel regimen: Pau-Colace. LBM: 0 DVT prophylaxis: Mechanical VTE with SCDs. Chemical management with Lovenox 40 mg QD SQ. DC Planning: Case management consulted for assistance with final discharge disposition. Emotional support provided to patient and family at bedside and plan of care discussed. Discussed with RN at bedside. Discussed pt condition and plan of care with collaborating trauma surgeon. Patient is hemodynamically stable and being managed on the med/surg floor. The trauma team will round each day, and evaluate plan of care on a daily basis. RIGHT PTX O2 nasal cannula as needed Supportive care Aggressive pulmonary toileting 12/24: Right CT placed A.m. chest x-ray shows no PTX Chest x-ray every morning while chest tube in place Pain management Encourage out of bed PT and OT ordered Bowel regimen Lovenox for DVT prophylaxis - Attending Attestation The exam, history, and the medical decision-making described in the above note were completed with the assistance of the mid-level provider. I reviewed and agree with the findings presented. I attest that I had a [id number] encounter with the patient on the same day, and personally performed and documented my assessment and findings in the medical record.
--- NOTE | 2017-12-25 10:29 | P.PNIM ---
Subjective Interval history: Pt with some pain at the CT insertion site He is saturating well on RA Pt with CT to suction and planned for Chest CT this morning. Physical Exam Vital signs: Vital Signs 12/24/17 20:16 12/24/17 20:19 12/24/17 20:45 Temperature 98.2 F 97.8 F Pulse Rate 70 74 Respiratory Rate 18 19 Blood Pressure 150/91 H 151/103 H Pulse Oximetry 96 98 98 12/24/17 21:59 12/24/17 23:00 12/24/17 23:49 Temperature Pulse Rate 96 H 72 Respiratory Rate 18 18 Blood Pressure 163/87 H 124/75 Pulse Oximetry 98 98 98 12/25/17 00:19 12/25/17 01:43 12/25/17 01:44 Temperature Pulse Rate 66 74 Respiratory Rate 18 18 18 Blood Pressure 127/80 132/88 Pulse Oximetry 99 98 12/25/17 03:00 12/25/17 04:23 12/25/17 05:22 Temperature Pulse Rate 66 64 58 L Respiratory Rate 16 18 18 Blood Pressure 114/74 137/88 110/70 Pulse Oximetry 99 100 96 12/25/17 06:34 12/25/17 07:45 Temperature Pulse Rate 59 L Respiratory Rate 16 Blood Pressure 112/74 Pulse Oximetry 96 97 Intake & Output 12/24/17 12/25/17 12/25/17 18:59 06:59 18:59 Weight 90.718 kg Narrative: General: NAD, AAOx3 Chest: CTA, chest tube in right chest to suction Cardiac: Regular Abd: +BS, soft ND/NT Ext: No edema Results - Labs CBC & Chem 7: 12/26/17 06:36 12/26/17 06:36 Laboratory Results - last 24 hr 12/24/17 12/24/17 12/24/17 21:25 21:25 21:25 WBC 5.7 RBC 4.56 Hgb 13.4 Hct 40.1 MCV 87.9 MCH 29.3 MCHC 33.4 RDW 16.7 Plt Count 226 MPV 9.3 Neut % (Auto) 51.0 Lymph % (Auto) 34.2 [place] % (Auto) 8.5 H Eos % (Auto) 5.3 H Baso % (Auto) 1.0 Neut # (Auto) 2.9 Lymph # (Auto) 1.9 [place] # (Auto) 0.5 Eos # (Auto) 0.3 Baso # (Auto) 0.1 WBC Differential . Differential Comment Auto diff final PT 10.3 INR 1.0 APTT 28.6 D-Dimer Quant (PE/DVT) Sodium 140 Potassium 4.3 Chloride 111 H Carbon Dioxide 22.5 Anion Gap 7 BUN 25 H Creatinine 1.57 H Estimated GFR 55 L Random Glucose 88 Calcium 8.7 Magnesium Total Bilirubin 0.3 AST 26 ALT 25 Alkaline Phosphatase 105 Total Creatine Kinase 373 H CK-MB (CK-2) 4.2 H CK-MB (CK-2) % 1.1 Troponin I Less than 0.02 L Total Protein 7.3 Albumin 3.9 12/24/17 12/24/17 21:25 21:25 WBC RBC Hgb Hct MCV MCH MCHC RDW Plt Count MPV Neut % (Auto) Lymph % (Auto) [place] % (Auto) Eos % (Auto) Baso % (Auto) Neut # (Auto) Lymph # (Auto) [place] # (Auto) Eos # (Auto) Baso # (Auto) WBC Differential Differential Comment PT INR APTT D-Dimer Quant (PE/DVT) 2.02 H Sodium Potassium Chloride Carbon Dioxide Anion Gap BUN Creatinine Estimated GFR Random Glucose Calcium Magnesium 2.0 Total Bilirubin AST ALT Alkaline Phosphatase Total Creatine Kinase CK-MB (CK-2) CK-MB (CK-2) % Troponin I Total Protein Albumin - Imaging Impressions Chest X-Ray 12/24/17 20:59 CONCLUSION: Moderate size right pneumothorax. These findings were called to Dr. Prasad in the emergency room at 2128 hours. Chest X-Ray 12/24/17 23:19 CONCLUSION: Placement of right chest tube with near complete resolution of right pneumothorax. Chest X-Ray 12/25/17 00:00 CONCLUSION: Stable chest without evidence of pneumothorax. Stable position of right chest tube. Scattered atelectasis. Assessment and Plan - Assessment (1) Pneumothorax on right Code(s): J93.9 - Pneumothorax, unspecified Status: Acute Plan: Right sided pneumothorax, possible related to chest trauma - Pt is a 57 y/o AAM with HTN who [place] [facility] [place] with complaints of right sided chest discomfort. Pt reports that he had gotten pinned up against the wall by a large machine at work the day prior. He originally had no issues, but yesterday his right chest started to ache and developed burning in his chest. - CXR (12/24) --> Moderate size right pneumothorax. - Pt had a CT placed in the ED - Repeat CXR (12/25) --> Stable chest without evidence of pneumothorax. Stable position of right chest tube. Scattered atelectasis. - General Surgery was consulted at admission - Chest CT is planned for this morning - Further management of the CT per GS - Pain control PRN - IS - Supportive care - DVt prophylaxis HTN - Home meds resumed - Monitor (2) Hypertension Code(s): I10 - Essential (primary) hypertension Status: Acute - Attending Attestation Patient examined. Assessment and plan formulated with Brisa Ibarra PA-C. I agree with the above.
[2017-12-25] MEDS: Lisinopril 10 MG Tablet PO SCH (10:43)
[2017-12-25] MEDS: diazePAM 2 MG Tablet PO SCH ×2 (10:43→18:34)
[2017-12-25] MEDS: Senna/Docusate Sodium 8.6/50 MG Tablet PO SCH ×2 (10:45→21:00)
[2017-12-25 11:24] LABS: Albumin 3.8 g/dL (3.4-5.0); Anion Gap 10 meq/L (5-15); Aspartate Aminotransferase 19 U/L (15-37); Blood Urea Nitrogen 20 mg/dL (7-18); Calcium 8.7 mg/dL (8.5-10.1); Carbon Dioxide 22.1 meq/L (21.0-32.0); Chloride 110 meq/L (98-107); Glomerular Filtration Rate 85 mL/min (>89); Glucose,Random 99 mg/dL (74-106); Potassium 3.7 meq/L (3.5-5.1)
[2017-12-25 11:25] LABS: Alanine Aminotransferase 22 U/L (12-78)
[2017-12-25 11:27] LABS: Sodium 142 meq/L (136-145)
[2017-12-25 11:28] LABS: Alkaline Phosphatase 96 U/L (45-117); Total Protein 7.2 g/dL (6.4-8.2)
[2017-12-25] MEDS: Lidocaine 5% Patch T-DERMAL SCH (11:50)
--- NOTE | 2017-12-25 16:05 | ECG ---
Date Performed: 12/24/2017 Time Performed: 20:50:36 PTAGE: 57 years EKG: Sinus rhythm WITH SINUS ARRHYTHMIA Since previous tracing, no significant change noted NORMAL ECG PREVIOUS TRACING : 12/07/2016 14.18 DOCTOR: Lan Prasad Interpretating Date/Time 12/25/2017 16:03:59
--- NOTE | 2017-12-25 19:28 | MH ---
cc: Tommie David MD DATE OF ADMISSION: 12/24/2017 HISTORY OF PRESENT ILLNESS: This is a 57-year-old male who presented to the emergency room with a complaint of chest discomfort, burning. The patient states that the day prior to presentation, he got pinned between a block truck. At that time, he did not have any effects. That evening, he started noting some mild difficulty with burning in his chest, which progressed the following day. As a result, he presented to the emergency room where on his workup he was found to have a large pneumothorax. A chest tube was placed by the emergency room physician. Trauma service was requested for management. The patient denies shortness of breath. He denies any loss of consciousness. Denies any numbness or tingling. Denies any abdominal pain or headache. PAST MEDICAL HISTORY: Significant for pneumonia in the past, hypertension. PAST SURGICAL HISTORY: Negative. ALLERGIES: THE PATIENT HAS NO KNOWN DRUG ALLERGIES. MEDICATIONS: He is on lisinopril at home. SOCIAL HISTORY: He does not currently smoke, but is a former smoker. FAMILY HISTORY: Noncontributory. REVIEW OF SYSTEMS: Significant for above, all other review negative. PHYSICAL EXAMINATION: GENERAL: He is lying on the stretcher, in no acute distress. HEENT: His pupils are equal and reactive. NECK: Trachea midline. Without JVD. CHEST: Respirations are clear. Pigtail catheter in place in the right chest. ABDOMEN: Soft, nontender. MUSCULOSKELETAL: No deformities. NEUROLOGIC: Nonfocal. RADIOLOGICAL IMAGES: Chest x-ray reveals a right chest catheter in place with expanded lungs. ASSESSMENT: This is a patient who sustained a traumatic pneumothorax. We will get a CT to further evaluate the chest. We will provide pain management and monitor pulmonary status. MD LORNE Carranza/sandip , 06:16 PM , 06:23 PM
[2017-12-26] MEDS: diazePAM 2 MG Tablet PO SCH ×2 (01:28→08:23)
--- NOTE | 2017-12-26 06:46 | XR ---
EXAM DATE: 12/26/2017 6:38 AM EDT AGE/SEX: 57 years / Male INDICATIONS: Short of breath, pain right chest, evaluate pneumothorax and chest tube CLINICAL DATA: This is the patient's subsequent encounter. Patient reports that signs and symptoms h ave been present for 2 days and indicates a pain score of 6/10. MEDICAL/SURGICAL HISTORY: . pneumothorax Chest tube, right. [place] [facility] [place]. . FINDINGS: Small caliber right chest tube present. No pneumothorax. Minimal basilar atelectasis or scarring. No significant effusion. Mild cardiomegaly. CONCLUSION: Small-caliber right chest tube without significant pneumothorax. Electronically signed by: John Brady MD 12/26/2017 6:45 AM EDT
[2017-12-26 07:19] LABS: Baso # (Auto) 0.1 th/mm3 (0.0-0.2); Baso % (Auto) 0.8 % (0.0-2.0); Eos # (Auto) 0.3 th/mm3 (0.0-0.4); Eos % (Auto) 3.4 % (0.0-4.0); Hematocrit 40.1 % (39.0-51.0); Hemoglobin 13.7 gm/dL (13.0-17.0); Lymph # (Auto) 1.9 th/mm3 (1.0-4.8); Lymph % (Auto) 23.1 % (9.0-44.0); Mean Corpuscular HGB Conc 34.1 % (32.0-36.0); Mean Corpuscular Hemoglobin 29.6 pg (27.0-34.0); Mean Corpuscular Volume 86.7 fL (80.0-100.0); Mean Platelet Volume 9.1 fL (7.0-11.0); Mono # (Auto) 0.5 th/mm3 (0.0-0.9); Neut # (Auto) 5.5 th/mm3 (1.8-7.7); Neut % (Auto) 66.7 % (16.0-70.0); Platelet Count 220 th/mm3 (150-450); Red Blood Count 4.62 mil/mm3 (4.50-5.90); Red Cell Distribution Width 16.3 % (11.6-17.2); White Blood Count 8.3 th/mm3 (4.0-11.0)
[2017-12-26 08:14] LABS: Anion Gap 8 meq/L (5-15); Blood Urea Nitrogen 17 mg/dL (7-18); Calcium 8.5 mg/dL (8.5-10.1); Carbon Dioxide 25.2 meq/L (21.0-32.0); Chloride 105 meq/L (98-107); Glomerular Filtration Rate Greater Than 89 mL/min (>89); Glucose,Random 95 mg/dL (74-106); Potassium 4.1 meq/L (3.5-5.1); Sodium 138 meq/L (136-145)
[2017-12-26] MEDS: Lisinopril 10 MG Tablet PO SCH (08:22)
[2017-12-26] MEDS: Lidocaine 5% Patch T-DERMAL SCH (08:23)
[2017-12-26] MEDS: Senna/Docusate Sodium 8.6/50 MG Tablet PO SCH (08:23)
[2017-12-26] MEDS ORDERED: Enoxaparin Inj 40 MG/0.4 ML Syringe SQ SCH (09:00)
--- NOTE | 2017-12-26 10:15 | P.PNIM ---
Subjective Interval history: Pt does not feel SOB Pt is on RA and vitals are stable Physical Exam Vital signs: Vital Signs 12/25/17 11:52 12/25/17 16:27 12/25/17 20:00 Temperature 98 F Pulse Rate 54 L Respiratory Rate 15 18 Blood Pressure 116/67 Pulse Oximetry 96 95 12/25/17 23:22 12/26/17 00:00 12/26/17 01:55 Temperature 98 F 97.1 F L Pulse Rate 55 L 69 56 L Respiratory Rate 18 16 Blood Pressure 114/87 123/80 Pulse Oximetry 97 96 12/26/17 04:00 12/26/17 07:13 12/26/17 08:00 Temperature 97.9 F 97.6 F Pulse Rate 60 63 Respiratory Rate 16 20 Blood Pressure 117/71 105/77 Pulse Oximetry 98 96 98 Intake & Output 12/25/17 12/26/17 12/26/17 18:59 06:59 18:59 Intake Total 240 / 240 240 / 240 Output Total 600 / 600 Balance 240 / 240 -360 / -360 Weight 83.915 kg 89.811 kg Intake: Oral 240 / 240 240 / 240 Output: Urine 600 / 600 Other: Weight On Admission 83.915 kg Narrative: GENERAL: NAD, AAOx3 CARDIO: Regular RESP: No accessory muscle use. CTA bilaterally. Right apical pigtail catheter in place to Pleur-evac drainage system. ABD: +BS, soft, non-tender, nondistended. EXT: No edema. Results - Labs CBC & Chem 7: 12/26/17 06:36 12/26/17 06:36 Laboratory Results - last 24 hr 12/25/17 12/25/17 12/26/17 10:50 17:35 06:36 WBC 8.3 RBC 4.62 Hgb 13.7 Hct 40.1 MCV 86.7 MCH 29.6 MCHC 34.1 RDW 16.3 Plt Count 220 MPV 9.1 Neut % (Auto) 66.7 Lymph % (Auto) 23.1 [place] % (Auto) 6.0 Eos % (Auto) 3.4 Baso % (Auto) 0.8 Neut # (Auto) 5.5 Lymph # (Auto) 1.9 [place] # (Auto) 0.5 Eos # (Auto) 0.3 Baso # (Auto) 0.1 WBC Differential . Differential Comment Auto diff final Sodium 142 Potassium 3.7 Chloride 110 H Carbon Dioxide 22.1 Anion Gap 10 BUN 20 H Creatinine 1.08 Estimated GFR 85 L POC Glucose 99 Random Glucose 99 Calcium 8.7 Total Bilirubin 0.4 AST 19 ALT 22 Alkaline Phosphatase 96 Total Protein 7.2 Albumin 3.8 12/26/17 06:36 WBC RBC Hgb Hct MCV MCH MCHC RDW Plt Count MPV Neut % (Auto) Lymph % (Auto) [place] % (Auto) Eos % (Auto) Baso % (Auto) Neut # (Auto) Lymph # (Auto) [place] # (Auto) Eos # (Auto) Baso # (Auto) WBC Differential Differential Comment Sodium 138 Potassium 4.1 Chloride 105 Carbon Dioxide 25.2 Anion Gap 8 BUN 17 Creatinine 0.94 Estimated GFR Greater than 89 POC Glucose Random Glucose 95 Calcium 8.5 Total Bilirubin AST ALT Alkaline Phosphatase Total Protein Albumin - Imaging Impressions Chest X-Ray 12/24/17 20:59 CONCLUSION: Moderate size right pneumothorax. These findings were called to Dr. Prasad in the emergency room at 2128 hours. Chest X-Ray 12/24/17 23:19 CONCLUSION: Placement of right chest tube with near complete resolution of right pneumothorax. Chest X-Ray 12/25/17 00:00 CONCLUSION: Stable chest without evidence of pneumothorax. Stable position of right chest tube. Scattered atelectasis. Chest CT 12/25/17 08:45 CONCLUSION: 1. Trace pneumothorax remaining with small chest tube in good position 2. Minimal bibasilar parenchymal changes evident. Chest X-Ray 12/26/17 06:00 CONCLUSION: Small-caliber right chest tube without significant pneumothorax. Assessment and Plan - Assessment (1) Pneumothorax on right Code(s): J93.9 - Pneumothorax, unspecified Status: Acute Plan: Right sided pneumothorax, possible related to chest trauma - Pt is a 57 y/o AAM with HTN who presented to the ED at [facility] [place]24[place]17 with complaints of right sided chest discomfort. Pt reports that he had gotten pinned up against the wall by a large machine at work the day prior. He originally had no issues, but yesterday his right chest started to ache and developed burning in his chest. - CXR (12/24) --> Moderate size right pneumothorax. - Pt had a CT placed in the ED - Repeat CXR (12/25) --> Stable chest without evidence of pneumothorax. Stable position of right chest tube. Scattered atelectasis. - General Surgery was consulted at admission for CT management - Chest CT (12/25/17) --> Trace pneumothorax remaining with small chest tube in good position. Minimal bibasilar parenchymal changes evident. - CT placed to [facility] on 12/25 - Repeat CXR on 12/26 --> Small-caliber right chest tube without significant pneumothorax. - Further management of the CT per GS - Pain control PRN - IS - Supportive care - DVt prophylaxis HTN - Home meds resumed - Monitor (2) Hypertension Code(s): I10 - Essential (primary) hypertension Status: Acute - Plan Patient examined. Assessment and plan formulated with Brisa Ibarra PA-C. I agree with the above.
--- NOTE | 2017-12-26 12:25 | XR ---
EXAM DATE: 12/26/2017 12:06 PM EDT AGE/SEX: 57 years / Male INDICATIONS: Post right chest tube removal. CLINICAL DATA: This is the patient's initial encounter. Patient reports that signs and symptoms have been present for 1 day and indicates a pain score of 0/10. MEDICAL/SURGICAL HISTORY: Hypertension. Gastroesophageal reflux disease. Total knee replacem ent, left. COMPARISON: [facility] [place], [place]ST 1V SINGLE AP, 12/26/2017. . FINDINGS: A single AP view of the chest demonstrates the lungs to be symmetrically aerated without evidence of mass, infiltrate or effusion. The cardiomediastinal contours are unremarkable. Osseous structures a re intact. CONCLUSION: Negative for acute process Electronically signed by: Ajay Blevins MD 12/26/2017 12:24 PM EDT
--- NOTE | 2017-12-26 12:46 | P.DS ---
Date of admission: 12/24/17 22:42 Primary care physician: UNKNOWN Attending physician on discharge: Tommie David Anticipated date of discharge: 12/26/17 Brief History from admission: PTX DS: Diagnosis - Discharge Diagnosis (1) Pneumothorax on right Status: Acute DS: Medications - Discharge Medications Prescriptions: hydrocodone-acetaminophen 1 tab PO Q4H PRN 3 Days #18 tab PRN Reason: Pain lidocaine [Lidoderm] 1 patch TRANSDERMAL DAILY 7 Days #7 ea DS: Summary Hospital Course: [place]: This is a 57-year-old AA male who tells us that he got pinned up against the wall by a large machine at work. He originally had no issues, but the next day his right chest started to ache and developed burning in his chest. INJURIES: RIGHT PTX PMHx: HTN Procedures: 12/24: R CT placement 12/26: R Ct removed. Consults: Hospitalist. Case management. The patient is now tolerating a po diet. Eating and drinking well. Right chest tube removed at bedside without incident. Vaseline gauze and 4 x 4 applied and secured with Elastoplast tape. Patient tolerated procedure well. Follow-up chest x-ray shows no PTX. Continue pulmonary toileting exercises even at home. Pain is being managed well with PO pain medications, and patient is being a provided with a script for pain meds upon discharge. [This patient will be prescribed narcotic pain medications due to his traumatic injuries. The patient has a normal physiological response to severe traumatic injuries and surgery. He will need acute pain management with prescribed narcotic treatment. The [employer] prescription drug monitoring program database has been queried.] (NO driving while taking narcotic pain medication enforced to patient.) We have recommended to patient to continue with stool softeners while taking narcotic pain medications to prevent constipation. Pt has been participating in PT and OT while admitted at [facility] and has been ambulating with their assistance and independently. No PT needs at home. All follow up appointments have been provided and discussed with the patient. It is recommended that the patient keeps all his follow up appointments for continued recovery. Patient's condition and plan of care discussed with collaborating trauma surgeon. He is agreeable to plan for discharge today. Therefore, the patient is stable to be safely discharged home from a trauma surgery standpoint. Thank you for allowing us to participate in his care. We wish Jerod the best in his recovery. RIGHT PTX O2 nasal cannula as needed Supportive care Aggressive pulmonary toileting 12/24: Right CT placed 12/25: RIGHT CT removed. A.m. chest x-ray shows no PTX Right apical chest tube removed at bedside without incident. Follow-up chest x-ray shows no PTX Pain management Encourage out of bed PT and OT ordered Bowel regimen Lovenox for DVT prophylaxis Collaborated with Dr. Mantilla. Patient is clear for DC. - Time Spent with Patient Total time spent providing and/or coordinating discharge services: Greater than 30 minutes - Quality: VTE Deep Vein Thrombosis/Pulmonary Embolism Present on Admission: No Exam Vital signs: Vital Signs 12/25/17 16:27 12/25/17 20:00 12/25/17 23:22 Temperature 98 F Pulse Rate 54 L 55 L Respiratory Rate 18 Blood Pressure 116/67 Pulse Oximetry 96 95 12/26/17 00:00 12/26/17 01:55 12/26/17 04:00 Temperature 98 F 97.1 F L 97.9 F Pulse Rate 69 56 L 60 Respiratory Rate 18 16 16 Blood Pressure 114/87 123/80 117/71 Pulse Oximetry 97 96 98 12/26/17 07:13 12/26/17 08:00 12/26/17 11:04 Temperature 97.6 F Pulse Rate 63 Respiratory Rate 20 Blood Pressure 105/77 Pulse Oximetry 96 98 97 Intake & Output 12/25/17 12/26/17 12/26/17 18:59 06:59 18:59 Intake Total 240 / 240 240 / 240 Output Total 600 / 600 Balance 240 / 240 -360 / -360 Weight 83.915 kg 89.811 kg Intake: Oral 240 / 240 240 / 240 Output: Urine 600 / 600 Other: # Bowel Movements 0 Weight On Admission 83.915 kg Narrative: GENERAL: This is a 57-year-old male, sitting up in bed. No distress noted. SKIN: Warm and dry. HEAD: Atraumatic. Normocephalic. EYES: PERRLA ENT: No nasal bleeding or discharge. Mucous membranes pink and moist. NECK: Trachea midline. No JVD. CARDIOVASCULAR: Regular rate and rhythm. RESPIRATORY: No accessory muscle use. Lungs are clear to auscultation. Breath sounds equal bilaterally. No distress or dyspnea. Right apical pigtail catheter in place to Pleur-evac drainage system to water seal. Dressing CDI. No air leak noted. Removed today. GASTROINTESTINAL: BS + x 4 quads. Abdomen soft, non-tender, nondistended. MUSCULOSKELETAL: Extremities without cyanosis, or edema. + peripheral pulses x 4 extremities. Warm with good capillary refill and sensation. MAEW. NEUROLOGICAL: Awake and alert. Normal speech and pattern. Results Procedures completed during hospitalization: . Labs on day of discharge: Labs from last 24 hours 12/26/17 12/26/17 12/25/17 06:36 06:36 17:35 WBC 8.3 RBC 4.62 Hgb 13.7 Hct 40.1 MCV 86.7 MCH 29.6 MCHC 34.1 RDW 16.3 Plt Count 220 MPV 9.1 Neut % (Auto) 66.7 Lymph % (Auto) 23.1 [place] % (Auto) 6.0 Eos % (Auto) 3.4 Baso % (Auto) 0.8 Neut # (Auto) 5.5 Lymph # (Auto) 1.9 [place] # (Auto) 0.5 Eos # (Auto) 0.3 Baso # (Auto) 0.1 WBC Differential . Differential Comment Auto diff final Sodium 138 Potassium 4.1 Chloride 105 Carbon Dioxide 25.2 Anion Gap 8 BUN 17 Creatinine 0.94 Estimated GFR Greater than 89 POC Glucose 99 Random Glucose 95 Calcium 8.5 - Impressions ITS Impressions Chest CT 12/25/17 08:45 CONCLUSION: 1. Trace pneumothorax remaining with small chest tube in good position 2. Minimal bibasilar parenchymal changes evident. Chest X-Ray 12/26/17 12:00 CONCLUSION: Negative for acute process Discharge Plan - Discharge Disposition Patient Disposition: 01 Discharge Home - Discharge Condition Condition: Stable - Discharge Order Discharge Orders: Discharge Order (Routine); Ordered 12/26/17 Ordered By: Cecile Wynn - Discharge Details Anticipated Discharge Date: 12/26/17 - Physicians Team Primary Care Provider: UNKNOWN, Attending Provider: Van Mantilla Other Providers: Tommie David MD ; Georgia Garay MD ; Cecile Wynn ARNP ; Vazquez Singh MD ; Scotty Ramos MD ; Jeannie Noyola ARNP ; Aditya Darby MD ; Jair Rush MD ; [employer]
== END 2017-12-26 13:47 | disposition home or self-care (01) ==
LOC: NEPE 19:53 → NEDA 22:42 → HCPC 12-25 10:45 → N05 12-26 00:34
PROVIDERS: ADMIT Hospitalist; ATTEND Hospitalist